=== PATIENT | female | born 1955 | race Caucasian/White ===

== ENCOUNTER 2016-11-26 08:00 | Outpatient (CLI) | payer MEDICAID | END 2016-11-26 08:01 | disposition home or self-care (01) | DX: I27.82 Chronic pulmonary embolism (principal) ==

== ENCOUNTER 2016-12-03 14:54 | Outpatient (CLI) | payer MEDICAID | END 2016-12-03 14:55 | disposition home or self-care (01) | DX: I27.82 Chronic pulmonary embolism (principal) ==

== ENCOUNTER 2016-12-11 14:15 | Outpatient (CLI) | payer MEDICAID | END 2016-12-11 14:16 | disposition home or self-care (01) | DX: I27.82 Chronic pulmonary embolism (principal) ==

== ENCOUNTER 2016-12-11 14:27 | Outpatient (CLI) | payer MEDICAID | END 2016-12-11 14:28 | disposition home or self-care (01) | DX: J18.9 Pneumonia, unspecified organism (principal); J98.4 Other disorders of lung; I27.82 Chronic pulmonary embolism ==

== ENCOUNTER 2016-12-19 15:01 | Outpatient (CLI) | payer MEDICAID | END 2016-12-19 15:02 | disposition home or self-care (01) | DX: I27.82 Chronic pulmonary embolism (principal) ==

== ENCOUNTER 2016-12-26 08:00 | Outpatient (CLI) | payer MEDICAID | END 2016-12-26 08:01 | disposition home or self-care (01) | LOC: LAB.N 08:00 | PROVIDERS: ATTEND Nurse Practitioner Family | DX: I27.82 Chronic pulmonary embolism (principal) | CPT/HCPCS: 85610 ==

== ENCOUNTER 2017-01-07 08:53 | Outpatient (CLI) | payer MEDICAID | END 2017-01-07 08:54 | disposition home or self-care (01) | DX: I27.82 Chronic pulmonary embolism (principal) ==

== ENCOUNTER 2017-01-14 14:17 | Outpatient (CLI) | payer MEDICAID | END 2017-01-14 14:18 | DX: I27.82 Chronic pulmonary embolism (principal) ==

== ENCOUNTER 2017-01-28 20:37 | Outpatient (CLI) | payer MEDICAID | END 2017-01-28 20:38 | disposition home or self-care (01) | DX: I27.82 Chronic pulmonary embolism (principal) ==

== ENCOUNTER 2017-02-04 08:00 | Outpatient (CLI) | payer MEDICAID | END 2017-02-04 08:01 | disposition home or self-care (01) | DX: I27.82 Chronic pulmonary embolism (principal) ==

== ENCOUNTER 2017-02-11 14:30 | Outpatient (CLI) | payer MEDICAID | END 2017-02-11 14:31 | disposition home or self-care (01) | DX: I27.82 Chronic pulmonary embolism (principal) ==

== ENCOUNTER 2017-02-18 14:25 | Outpatient (CLI) | payer MEDICAID | END 2017-02-18 14:26 | DX: I27.82 Chronic pulmonary embolism (principal) ==

== ENCOUNTER 2017-02-24 14:44 | Outpatient (CLI) | payer MEDICAID | END 2017-02-24 23:59 | disposition home or self-care (01) | DX: Z53.9 Procedure and treatment not carried out, unspecified reason (principal) ==

== ENCOUNTER 2017-02-24 15:00 | Outpatient (CLI) | payer MEDICAID | END 2017-02-24 15:01 | disposition home or self-care (01) | DX: M51.17 Intervertebral disc disorders with radiculopathy, lumbosacral region (principal) ==

== ENCOUNTER 2017-02-25 08:00 | Outpatient (CLI) | payer MEDICAID | END 2017-02-25 08:01 | disposition home or self-care (01) | DX: I27.82 Chronic pulmonary embolism (principal) ==

== ENCOUNTER 2017-03-04 14:44 | Outpatient (CLI) | payer MEDICAID | END 2017-03-04 23:59 | disposition home or self-care (01) | DX: I27.82 Chronic pulmonary embolism (principal) ==

== ENCOUNTER 2017-03-12 14:18 | Outpatient (CLI) | payer MEDICAID | END 2017-03-12 14:19 | DX: I27.82 Chronic pulmonary embolism (principal) ==

== ENCOUNTER 2017-03-18 14:03 | Outpatient (CLI) | payer MEDICAID | END 2017-03-18 14:04 | disposition home or self-care (01) | DX: I27.82 Chronic pulmonary embolism (principal) ==

== ENCOUNTER 2017-12-11 13:57 | Outpatient (CLI) | payer MEDICAID ==
[2017-12-11 18:47] LABS: BASOPHILS % (AUTO) 0.4 %; EOSINOPHILS # (AUTO) 0.3 10^3/uL (0.0-0.7); EOSINOPHILS % (AUTO) 4.3 %; HGB - HEMOGLOBIN 14.4 g/dL (12.0-16.0); LYMPHOCYTES % (AUTO) 15.1 %; MEAN CORPUSCULAR HEMOGLOBIN 31.5 pg (27.0-31.0); MEAN CORPUSCULAR HGB CONC 33.2 g/dL (32.0-36.0); MEAN PLATELET VOLUME 9.1 fL (7.9-10.8); MONOCYTES # (AUTO) 0.5 10^3/uL (0.0-1.0); MONOCYTES % (AUTO) 7.1 %; NEUTROPHILS # (AUTO) 4.7 10^3/uL (1.5-6.6); NEUTROPHILS % (AUTO) 73.1 %; PLT - PLATELET COUNT 189 10^3/uL (130-450); RED BLOOD COUNT 4.55 10^6/uL (4.20-5.40); RED CELL DISTRIBUTION WIDTH 14.1 % (12.0-15.0); WHITE BLOOD COUNT 6.4 x10^3/uL (4.8-10.8)
[2017-12-11 19:11] LABS: ALBUMIN 3.9 g/dL (3.2-5.5); ALBUMIN/GLOBULIN RATIO 1.6 (1.0-2.2); ALKALINE PHOSPHATASE 71 IU/L (42-121); ALT ALANINE AMINOTRANSFERASE 17 IU/L (10-60); AST ASPARTATE AMINOTRANSFERASE 19 IU/L (10-42); BILIRUBIN,TOTAL 0.9 mg/dL (0.2-1.0); BUN - BLOOD UREA NITROGEN 14 mg/dL (6-20); CALCIUM 8.7 mg/dL (8.5-10.3); CARBON DIOXIDE - CO2 26 mmol/L (21-32); CHLORIDE 105 mmol/L (101-111); CHOL/HDL RATIO 3.4 (<4.4); CHOLESTEROL 171 mg/dL; CREATININE 0.6 mg/dL (0.4-1.0); GFR - MDRD 102 (>89); GLUCOSE 122 mg/dL (70-100); HDL CHOLESTEROL 51 mg/dL; LDL CHOLESTEROL,CALCULATED 94 mg/dL; LDL/HDL RATIO 1.8 (<4.4); SODIUM 138 mmol/L (135-145); TOTAL PROTEIN 6.3 g/dL (6.7-8.2); VLDL CHOLESTEROL 26 mg/dL
== END 2017-12-11 13:58 | disposition home or self-care (01) ==
LOC: LAB.N 13:57
PROVIDERS: ATTEND Nurse Practitioner Family
DX: I10 Essential (primary) hypertension (principal); E78.5 Hyperlipidemia, unspecified
CPT/HCPCS: 36415; 80053; 80061; 83721; 84443; 85025

== ENCOUNTER 2017-12-15 14:21 | Outpatient (CLI) | payer MEDICAID ==
--- NOTE | 2017-12-16 21:14 | Mammography Report ---
DATE OF SERVICE: 12/15/2017 DIGITAL SCREENING MAMMOGRAM: 12/15/2017 CLINICAL INDICATION: A 62-year-old for baseline. TECHNIQUE: Routine CC and MLO projections were obtained of the breasts. The breasts demonstrate scattered fibroglandular densities bilaterally. Punctate, typically benign calcifications are present. No suspicious masses, clustered microcalcifications, or regions of architectural distortion are identified. IMPRESSION: Benign findings. RECOMMENDATIONS: Routine annual screening unless otherwise clinically indicated. BIRADS category 2 benign findings. STANDARD QUALIFYING STATEMENTS 1. This examination was reviewed with the aid of Computed-Aided Detection (CAD). 2. A negative or benign imaging report should not delay biopsy if clinically suspicious findings are present. Consider surgical consultation if warranted. More than 5% of cancers are not identified by imaging. 3. Dense breasts may obscure an underlying neoplasm. TD: 12/16/2017 22:13
== END 2017-12-15 14:22 | disposition home or self-care (01) ==
LOC: DI 14:21
PROVIDERS: ATTEND Nurse Practitioner Family
DX: Z12.31 Encounter for screening mammogram for malignant neoplasm of breast (principal)
CPT/HCPCS: 77067

== ENCOUNTER 2018-06-26 14:18 | Emergency (ER) | payer MEDICAID, OTHER ==
[2018-06-26] MEDS ORDERED: TETANUS/DIPHTHERIA/PERTUSSIS 0.5 ML SYRINGE IM ONE (15:01)
--- NOTE | 2018-06-26 15:16 | ED Physician Documentation ---
PD HPI UPPER EXT INJURY - Stated complaint Stated Complaint: RT PINKY FIN LAC - Chief complaint Chief Complaint: Laceration - History obtained from History obtained from: Patient - History of Present Illness Location: Right, Finger (little) Type of injury: Laceration Where injury occurred: Work Timing - onset: Today (Just prior to arrival.) Contributing factors: Work related - Additonal information Additional information: The patient is a 62-year-old female who cut her right little finger on a drip box tender while at work just prior to arrival. She is right-hand dominant. Last tetanus booster is unknown. Her medications include Pradaxa for prior pulmonary embolus. 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 HEENT: Tonsil/Adenoidectomy - Present Medications Home Medications: Ambulatory Orders Medication Instructions Recorded Confirmed Albuterol 2.5 mg INH Q4H PRN #30 neb 12/11/13 08/27/16 Amlodipine Besylate 10 mg PO DAILY 12/11/13 08/27/16 traMADol [Ultram] 100 mg PO BID 01/02/14 08/27/16 Spironolactone 75 mg PO DAILY 04/03/15 08/27/16 Ipratropium/Albuterol [Duoneb] 3 ml INH Q6H PRN 05/08/16 08/27/16 Albuterol Sulf [Ventolin Hfa 2 puffs INH Q4HR PRN 08/27/16 08/27/16 Inhaler] Fluticasone [Flonase] 1 - 2 sprays BRYAN DAILY 08/27/16 08/27/16 Fluticasone/Salmeterol [Advair Hfa 2 puffs INH BID 08/27/16 08/27/16 230-21 Mcg Inhaler] - Allergies Allergies/Adverse Reactions: Allergies Allergy/AdvReac Type Severity Reaction Status Date / Time atenolol Allergy Respiratory Verified 06/26/18 14:33 doxycycline Allergy Rash Verified 06/26/18 14:33 hydrochlorothiazide Allergy Rash Verified 06/26/18 14:33 metoprolol Allergy Unknown Verified 06/26/18 14:33 lisinopril AdvReac cough Verified 06/26/18 14:33 - Social History Does the pt smoke?: No Smoking Status: Former smoker (Quit 4 months ago.) Does the pt drink ETOH?: Yes Does the pt have substance abuse?: No - Immunizations Immunizations are current?: Yes PD ED PE NORMAL - Vitals Vital signs reviewed: Yes (Mild systolic hypertension initially.) - General General: Alert and oriented X 3, Well developed/nourished - HEENT HEENT: Atraumatic - Respiratory Respiratory: No respiratory distress - Derm Derm: No rash - Extremities Extremities: Other (There is a 1 cm laceration on the volar aspect of the right little finger at the level of the DIP joint. She has full flexion and extension of the DIP, PIP, and MCP joints against resistance. Distal neurovascular is intact.) - Neuro Neuro: Alert and oriented X 3, No motor deficit, No sensory deficit Results - Vitals Vitals: Oxygen O2 Source Room air Procedures - Laceration (location) right little finger Length in cm: 1 Wound type: Linear, Into subcut fat Neurovascular status: Sensory intact, Motor intact, Vascular intact Anesthesia: Lidocaine 1% with epi Wound Preparation: Hibiclens, Irrigated copiously NS, Wound explored, To the base. No: FB identified Skin layer closure: Nylon, Interrupted, Size #-0 - enter number (5), Sutures - enter # (3) Other: Patient tolerated well, No complications, Neurovascular intact, Dressing applied, Tetanus booster given Complexity: Simple PD MEDICAL DECISION MAKING - ED course Complexity details: considered differential, d/w patient, d/w family, other (An L&I form was completed.) ED course: The patient's presentation is significant for a laceration to the right little finger. There is no clinical evidence of tendon, nerve, or digital artery involvement. There is no evidence of foreign body. Treatment in the emergency department included administration of tetanus booster. The wound was repaired after local anesthetic and thorough cleaning of the wound. Antibiotic ointment and gauze dressing was applied. I discussed with her and her mother the expected course of injury, appropriate wound care and timing for suture removal , as well as potentially worrisome signs or symptoms that should prompt reevaluation in the emergency department. An L&I form was completed. - Sepsis Event Vital Signs: Oxygen O2 Source Room air Departure - Departure Disposition: 01 Home, Self Care Clinical Impression: Finger laceration Qualifiers: Encounter type: initial encounter Finger: little finger Damage to nail status: without damage Foreign body presence: without foreign body Laterality: right Qualified Code(s): S61.216A - Laceration without foreign body of right little finger without damage to nail, initial encounter Condition: Stable Instructions: ED Laceration Hand Follow-Up: Federica Ortiz ARNP [Credentialed Staff Provider] - Comments: Keep the wound clean, and apply antibiotic ointment daily. Follow-up for suture removal in about 10 days. Return to the emergency department if you develop any sign of infection, or otherwise worsening symptoms. Discharge Date/Time: 06/26/18 15:32
[2018-06-26 15:23] VITALS: BP 145/86
== END 2018-06-26 15:32 | disposition home or self-care (01) ==
LOC: ED 14:18
DX: S61.216A Laceration without foreign body of right little finger without damage to nail, initial encounter (principal); W26.0XXA Contact with knife, initial encounter; Y99.0 Civilian activity done for income or pay; Z23 Encounter for immunization; I10 Essential (primary) hypertension; Z87.891 Personal history of nicotine dependence
CPT/HCPCS: 1040M; 12001; 90471; 90715; 99282; 99283

== ENCOUNTER 2018-07-08 13:01 | Emergency (ER) | payer OTHER, MEDICAID ==
[2018-07-08 13:20] VITALS: BP 154/70
--- NOTE | 2018-07-08 14:15 | ED Physician Documentation ---
PD HPI WOUND RECHECK - Stated complaint Stated Complaint: REMOVE STITCHES - Chief complaint Chief Complaint: General - Histroy obtained from History obtained from: Patient - History of Present Illness Location: Right Upper Extremity Timing - onset: How many days ago (12) Associated symptoms: No: Fever, Redness, Swelling, Drainage, Pain Similar symptoms before: Diagnosis (laceration) Recently seen: Emergency Dept (12 days ago) - Additional information Additional information: 62 y/o female returns with no complaints for suture removal. She has been back at work since this happened and she has healed well. 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 HEENT: Tonsil/Adenoidectomy - Present Medications Home Medications: Ambulatory Orders Medication Instructions Recorded Confirmed Albuterol 2.5 mg INH Q4H PRN #30 neb 12/11/13 08/27/16 Amlodipine Besylate 10 mg PO DAILY 12/11/13 08/27/16 traMADol [Ultram] 100 mg PO BID 01/02/14 08/27/16 Spironolactone 75 mg PO DAILY 04/03/15 08/27/16 Ipratropium/Albuterol [Duoneb] 3 ml INH Q6H PRN 05/08/16 08/27/16 Albuterol Sulf [Ventolin Hfa 2 puffs INH Q4HR PRN 08/27/16 08/27/16 Inhaler] Fluticasone [Flonase] 1 - 2 sprays BRYAN DAILY 08/27/16 08/27/16 Fluticasone/Salmeterol [Advair Hfa 2 puffs INH BID 08/27/16 08/27/16 230-21 Mcg Inhaler] - Allergies Allergies/Adverse Reactions: Allergies Allergy/AdvReac Type Severity Reaction Status Date / Time atenolol Allergy Respiratory Verified 07/08/18 13:20 doxycycline Allergy Rash Verified 07/08/18 13:20 hydrochlorothiazide Allergy Rash Verified 07/08/18 13:20 metoprolol Allergy Unknown Verified 07/08/18 13:20 lisinopril AdvReac cough Verified 07/08/18 13:20 - Social History Does the pt smoke?: No Smoking Status: Former smoker (Quit 4 months ago.) Does the pt drink ETOH?: Yes Does the pt have substance abuse?: No - Immunizations Immunizations are current?: Yes PD ED PE NORMAL - Vitals Vital signs reviewed: Yes (hypertensive) - General General: Alert and oriented X 3, No acute distress, Well developed/nourished - HEENT HEENT: Atraumatic, PERRL - Respiratory Respiratory: No respiratory distress - Extremities Extremities: No deformity, No edema, Other (healing wound) - Neuro Neuro: No motor deficit, No sensory deficit Eye Opening: Spontaneous Motor: Obeys Commands Verbal: Oriented GCS Score: 15 - Psych Psych: Normal mood, Normal affect Results - Vitals Vitals: Vital Signs - 24 hr 07/08/18 13:18 Temperature 36.4 C L Heart Rate 69 Respiratory 20 Rate Blood Pressure 154/70 H O2 Saturation 96 Oxygen O2 Source Room air PD MEDICAL DECISION MAKING - ED course Complexity details: considered differential, d/w patient ED course: healing wound no problems sutures removed by RN. - Sepsis Event Vital Signs: Vital Signs - 24 hr 07/08/18 13:18 Temperature 36.4 C L Heart Rate 69 Respiratory 20 Rate Blood Pressure 154/70 H O2 Saturation 96 Oxygen O2 Source Room air Departure - Departure Disposition: 01 Home, Self Care Clinical Impression: Healing wound Condition: Stable Instructions: ED Wound Care Discharge Date/Time: 07/08/18 14:14
== END 2018-07-08 14:14 | disposition home or self-care (01) ==
LOC: ED 13:01
DX: S61.216D Laceration without foreign body of right little finger without damage to nail, subsequent encounter (principal); X58.XXXD Exposure to other specified factors, subsequent encounter; I10 Essential (primary) hypertension; Z87.891 Personal history of nicotine dependence
CPT/HCPCS: 99282

== ENCOUNTER 2018-12-01 08:00 | Outpatient (CLI) | payer MEDICAID ==
[2018-12-01 11:14] LABS: MUDS CUTOFF CONCENTRATIONS CUTOFF CONC BELOW:
[2018-12-01 11:41] LABS: AMPHETAMINE SCREEN,URINE NEGATIVE (NEGATIVE); BENZODIAZEPINES SCREEN, URINE NEGATIVE (NEGATIVE); COCAINE SCREEN URINE NEGATIVE (NEGATIVE); METHADONE SCREEN, URINE NEGATIVE (NEGATIVE); METHAMPHETAMINES SCREEN, URINE NEGATIVE (NEGATIVE); OPIATE SCREEN, URINE NEGATIVE (NEGATIVE); OXYCODONE SCREEN, URINE NEGATIVE (NEGATIVE); PROPOXYPHENE SCREEN, URINE NEGATIVE (NEGATIVE); TRICYCLIC ANTIDEPRESSANT,URINE NEGATIVE (NEGATIVE)
== END 2018-12-01 23:59 | disposition home or self-care (01) ==
LOC: LAB.R 08:00
PROVIDERS: ATTEND Nurse Practitioner Family
DX: Z79.891 Long term (current) use of opiate analgesic (principal)
CPT/HCPCS: 80306

== ENCOUNTER 2019-03-17 08:00 | Outpatient (CLI) | payer MEDICAID ==
[2019-03-17 17:27] LABS: MUDS CUTOFF CONCENTRATIONS CUTOFF CONC BELOW:
[2019-03-17 17:49] LABS: AMPHETAMINE SCREEN,URINE NEGATIVE (NEGATIVE); BENZODIAZEPINES SCREEN, URINE NEGATIVE (NEGATIVE); COCAINE SCREEN URINE NEGATIVE (NEGATIVE); METHADONE SCREEN, URINE NEGATIVE (NEGATIVE); METHAMPHETAMINES SCREEN, URINE NEGATIVE (NEGATIVE); OPIATE SCREEN, URINE NEGATIVE (NEGATIVE); OXYCODONE SCREEN, URINE NEGATIVE (NEGATIVE); PROPOXYPHENE SCREEN, URINE NEGATIVE (NEGATIVE); TRICYCLIC ANTIDEPRESSANT,URINE NEGATIVE (NEGATIVE)
== END 2019-03-17 23:59 | disposition home or self-care (01) ==
LOC: LAB.R 08:00
PROVIDERS: ATTEND Nurse Practitioner Family
DX: Z79.891 Long term (current) use of opiate analgesic (principal)
CPT/HCPCS: 80306

== ENCOUNTER 2020-08-24 11:29 | Outpatient (CLI) | payer MEDICAID | END 2020-08-24 11:30 | disposition EMS.NT | LOC: EMS 11:29 | PROVIDERS: ATTEND Surgery | DX: R06.00 Dyspnea, unspecified (principal); R05 Cough ==

== ENCOUNTER 2024-02-14 08:12 | Outpatient (CLI) | payer BC, MEDICARE | END 2024-02-14 23:59 | disposition short-term general hospital (02) | LOC: EMS 08:12 | DX: R06.2 Wheezing (principal); R09.89 Other specified symptoms and signs involving the circulatory and respiratory systems; R06.00 Dyspnea, unspecified | CPT/HCPCS: A0425; A0427 ==

== ENCOUNTER 2024-08-07 14:13 | Emergency (ER) | payer MEDICARE ==
--- NOTE | 2024-08-07 14:40 | ED Physician Documentation ---
History of Present Illness - Stated complaint Stated Complaint: HIGH BP READING,VISION SPOTTY/THROBBING - Chief complaint Chief Complaint: Neuro - Additonal information Additional information: 68-year-old female with history of hypertension, COPD, asthma, history of pulmonary embolism anticoagulated on Pradaxa, high cholesterol presents emergency department for ongoing hypertension. Patient says that she saw her primary care provider about a month ago and systolic blood pressure was over the 200s. She takes 5 mg amlodipine daily and 100 mg of losartan daily and used to take spironolactone but was recently taken off of this medication for high potassium. She says that she has just been intermittently feeling nauseous, left arm pain right neck pain woke up today with severe tailbone pain despite no trauma or falls and feels a constant whooshing noise to her ears and severe head pressure. No recent fevers or chills that she is aware of.Patient also reports that she has been having new vision changes and feels like her vision is very blurry. 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 HEENT: Tonsil/Adenoidectomy - Present Medications Home Medications: Ambulatory Orders Medication Instructions Recorded Confirmed Amlodipine Besylate 5 mg PO DAILY 12/11/13 08/27/16 traMADol [Ultram] 100 mg PO BID 01/02/14 08/27/16 Albuterol Sulf [Ventolin Hfa 2 puffs INH Q4HR PRN 08/27/16 08/27/16 Inhaler] Fluticasone Propion/Salmeterol 2 puffs INH BID 08/27/16 08/27/16 [Advair Hfa 230-21 Mcg Inhaler] Dabigatran Etexilate Mesylate 150 mg PO BID 08/07/24 08/07/24 [Pradaxa] Losartan Potassium 100 mg PO DAILY 08/07/24 08/07/24 - Allergies Allergies/Adverse Reactions: Allergies Allergy/AdvReac Type Severity Reaction Status Date / Time atenolol Allergy Respiratory Verified 08/07/24 14:32 doxycycline Allergy Rash Verified 09/21/24 14:32 hydrochlorothiazide Allergy Rash Verified 08/07/24 14:32 metoprolol Allergy Unknown Verified 08/07/24 14:32 lisinopril AdvReac cough Verified 08/07/24 14:32 - Social History Does the pt smoke?: No Smoking Status: Never smoker Does the pt drink ETOH?: Yes Does the pt have substance abuse?: No - Immunizations Immunizations are current?: Yes PD ED PE NORMAL - Vitals Vital signs reviewed: Yes - General General: Alert and oriented X 3, No acute distress, Well developed/nourished - HEENT HEENT: Atraumatic, PERRL, EOMI - Neck Neck: Supple, no meningeal sign, No bony TTP - Cardiac Cardiac: RRR, No murmur, No gallop - Respiratory Respiratory: No respiratory distress, Clear bilaterally - Abdomen Abdomen: Normal bowel sounds, Non tender, Non distended, No organomegaly - Back Back: No CVA TTP - Derm Derm: Normal color, Warm and dry, No rash - Extremities Extremities: No edema, No calf tenderness / cord - Neuro Neuro: Alert and oriented X 3, beam dyer 2-12 intact, No motor deficit, No sensory deficit, Normal speech Eye Opening: Spontaneous Motor: Obeys Commands Verbal: Oriented GCS Score: 15 Results - Vitals Vitals: Vital Signs - 24 hr 08/07/24 08/07/24 08/07/24 14:28 15:36 16:06 Temperature 37 C Heart Rate 78 78 79 Respiratory 16 19 20 Rate Blood Pressure 209/89 H 174/85 H 162/68 H O2 Saturation 98 95 97 08/07/24 16:40 Temperature Heart Rate 72 Respiratory 20 Rate Blood Pressure 173/81 H O2 Saturation 99 Oxygen O2 Source Room air - EKG (time done) 1446 EKG releavant findings:: EKG personally interpreted by author of this note. Relevant findings are: Rate: Rate (enter#) (75) Rhythm: NSR [place]: Normal Intervals: Normal RI QRS: Normal Ischemia: Normal ST segments Other comments: Other comments - Labs Labs: Laboratory Tests 08/07/24 08/07/24 08/07/24 15:01 15:01 15:01 WBC 4.8 RBC 3.98 L Hgb 12.6 Hct 39.1 MCV 98.2 MCH 31.7 H MCHC 32.2 RDW 13.8 Plt Count 196 MPV 9.7 Neut # (Auto) 3.7 Lymph # (Auto) 0.6 L [place] # (Auto) 0.4 Eos # (Auto) 0.1 Baso # (Auto) 0.0 Absolute Nucleated RBC 0.00 Nucleated RBC % 0.0 PT 14.5 H INR 1.3 H Sodium 140 Potassium 4.0 Chloride 106 Carbon Dioxide 25 Anion Gap 9.0 BUN 14 Creatinine 0.6 Estimated GFR (MDRD) 100 Glucose 84 Calcium 9.4 Total Bilirubin 0.8 AST 27 ALT 20 Alkaline Phosphatase 67 Troponin I High Sens 7.1 B-Natriuretic Peptide Total Protein 6.5 Albumin 4.2 Globulin 2.3 Albumin/Globulin Ratio 1.8 Lipase 19 Nasal Adenovirus (PCR) Nasal B. parapertussis DNA (PCR) Nasal Coronavir 229E PCR Nasal Coronavir HKU1 PCR Nasal Coronavir NL63 PCR Nasal Coronavir OC43 PCR Nasal Enterovir/Rhinovir PCR Nasal Influenza B PCR Nasal Influenza A PCR Nasal Parainfluen 1 PCR Nasal Parainfluen 2 PCR Nasal Parainfluen 3 PCR Nasal Parainfluen 4 PCR Nasal RSV (PCR) Nasal B.pertussis DNA PCR Nasal C.pneumoniae (PCR) Hub[place] Human Metapneumo PCR Nasal M.pneumoniae (PCR) Nasal SARS-CoV-2 (PCR) 08/07/24 08/07/24 15:01 16:55 WBC RBC Hgb Hct MCV MCH MCHC RDW Plt Count MPV Neut # (Auto) Lymph # (Auto) [place] # (Auto) Eos # (Auto) Baso # (Auto) Absolute Nucleated RBC Nucleated RBC % PT INR Sodium Potassium Chloride Carbon Dioxide Anion Gap BUN Creatinine Estimated GFR (MDRD) Glucose Calcium Total Bilirubin AST ALT Alkaline Phosphatase Troponin I High Sens B-Natriuretic Peptide 58 Total Protein Albumin Globulin Albumin/Globulin Ratio Lipase Nasal Adenovirus (PCR) NOT DETECTED Nasal B. parapertussis DNA (PCR) NOT DETECTED Nasal Coronavir 229E PCR NOT DETECTED Nasal Coronavir HKU1 PCR NOT DETECTED Nasal Coronavir NL63 PCR NOT DETECTED Nasal Coronavir OC43 PCR NOT DETECTED Nasal Enterovir/Rhinovir PCR NOT DETECTED Nasal Influenza B PCR NOT DETECTED Nasal Influenza A PCR NOT DETECTED Nasal Parainfluen 1 PCR NOT DETECTED Nasal Parainfluen 2 PCR NOT DETECTED Nasal Parainfluen 3 PCR NOT DETECTED Nasal Parainfluen 4 PCR NOT DETECTED Nasal RSV (PCR) NOT DETECTED Nasal B.pertussis DNA PCR NOT DETECTED Nasal C.pneumoniae (PCR) NOT DETECTED Hubert Human Metapneumo PCR NOT DETECTED Nasal M.pneumoniae (PCR) NOT DETECTED Nasal SARS-CoV-2 (PCR) NOT DETECTED - Rads (name of study) Head CT without Relevant Findings:: Final report received, EMP independent interpretation of test (No acute intracranial pathology or findings), Other Angio head and neck Relevant Findings:: Final report received, EMP independent interpretation of test, Other (No significant intracranial arterial abnormality visualizedShe does have multiple prominent cervical lymph nodes without zaynab lymphadenopathy nonspecific finding.) Chest x-ray Relevant Findings:: Final report received, EMP independent interpretation of test, Other (No acute cardiopulmonary process) PD Medical Decision Making - ED course ED course: 68-year-old female presents emerged part for concerns of ongoing hypertension with tailbone pain, chest pain, whooshing sound in her ears. Since she has been here her blood pressure has actually improved significantly come down to 160 systolically. Labs are complete for further evaluation she has no anemia normal CMP normal kidney function. Respiratory panel is found to be negative troponin is within normal limits. The symptoms have been ongoing now for the last 3 to 4 weeks. I completed a chest x-ray for further evaluation and no acute cardiopulmonary abnormalities are visualized. Angio CT was also complete of the head and neck and again no arterial head or neck abnormalities were visualized. And a head CT was also complete for further evaluation and patient had no acute intracranial pathology. Patient says that she does have a very poor diet and drinks Mountain Dew every day which could be contributing to her hypertension. She has a follow-up appoint with cardiology coming up that her primary care provider referred her to I do not believe that she requires any hospitalization for the symptoms heart score is 3 points making her low risk for MACE and patient has close contact with her primary care provider. I am not going to make any adjustments to her hypertension medications as patient was stressed the importance of following up with her primary care provider for further evaluation and management of this. She is given very strict ER return precautions and told to return to the emergency department if she feels any worsening symptoms in any way shape or form. At this point in time patient is safe for discharge all questions answered. Departure - Departure Disposition: 01 Home, Self Care Clinical Impression: High blood pressure Qualifiers: Hypertension type: unspecified Qualified Code(s): I10 - Essential (primary) hypertension Tinnitus Qualifiers: Laterality: bilateral Qualified Code(s): H93.13 - Tinnitus, bilateral Instructions: DASH Plan Eat Heart Healthy Food, Metabolic Syndrome Lowering Your Blood Pressure Comments: Thank you for trusting us with your care. We have completed a head CT, CT angio head and neck, chest x-ray as well as labs and an EKG and I am not seeing any acute abnormalities or findings at this point in time that require further emerg ent workup. As we discussed it is very important that you are adjusting your diet and lifestyle with your high blood pressure such as eating a healthy diet, cutting out alcohol and caffeine, avoiding overly processed foods, and increasing your daily activity and adding exercise. Please follow with your primary care provider about today's ER visit for further evaluation of your blood pressure and medication adjustment. Please come back to the ER if you are having any worsening symptoms, chest pain, shortness of breath, or any other concerning emergent symptoms. Forms: PCP List Discharge Date/Time: 08/07/24 17:00
[2024-08-07 15:06] LABS: BASOPHILS % (AUTO) 0.4 %; EOSINOPHILS # (AUTO) 0.1 10^3/uL (0.0-0.7); EOSINOPHILS % (AUTO) 2.9 %; HCT - HEMATOCRIT 39.1 % (37.0-47.0); HGB - HEMOGLOBIN 12.6 g/dL (12.0-16.0); LYMPHOCYTES # (AUTO) 0.6 10^3/uL (1.5-3.5); LYMPHOCYTES % (AUTO) 11.9 %; MEAN CORPUSCULAR HEMOGLOBIN 31.7 pg (27.0-31.0); MEAN CORPUSCULAR HGB CONC 32.2 g/dL (32.0-36.0); MEAN CORPUSCULAR VOLUME 98.2 fL (81.0-99.0); MEAN PLATELET VOLUME 9.7 fL (7.9-10.8); MONOCYTES # (AUTO) 0.4 10^3/uL (0.0-1.0); MONOCYTES % (AUTO) 8.1 %; NEUTROPHILS # (AUTO) 3.7 10^3/uL (1.5-6.6); NEUTROPHILS % (AUTO) 76.5 %; PLT - PLATELET COUNT 196 10^3/uL (130-450); RED BLOOD COUNT 3.98 10^6/uL (4.20-5.40); RED CELL DISTRIBUTION WIDTH 13.8 % (12.0-15.0); WHITE BLOOD COUNT 4.8 x10^3/uL (4.8-10.8)
[2024-08-07 15:24] LABS: ALBUMIN 4.2 g/dL (3.2-5.5); ALBUMIN/GLOBULIN RATIO 1.8 (1.0-2.2); BILIRUBIN,TOTAL 0.8 mg/dL (0.2-1.0); CALCIUM 9.4 mg/dL (8.5-10.3); CREATININE 0.6 mg/dL (0.6-1.3); TOTAL PROTEIN 6.5 g/dL (6.4-8.9)
[2024-08-07] MEDS ORDERED: iohexoL-300 100 ML VIAL ONE (15:32)
[2024-08-07 15:34] LABS: INR 1.3 (0.8-1.2); PT - PROTHROMBIN TIME 14.5 secs (9.9-12.6)
[2024-08-07 16:07] LABS: TROPONIN I HIGH SENSITIVITY 7.1 ng/L (2.3-14.8)
--- NOTE | 2024-08-07 16:14 | CT Report ---
PROCEDURE: Head WO INDICATIONS: severe head pain TECHNIQUE: Noncontrast 4.5 mm thick angled axial sections acquired from the foramen magnum to the vertex. For r adiation dose reduction, the following was used: automated exposure control, adjustment of mA and/or kV according to patient size. COMPARISON: None. FINDINGS: Image quality: Excellent. CSF spaces: Basal cisterns are patent. No extra-axial fluid collections. Ventricles are normal in size and shape. Brain: No midline shift. No intracranial masses or hemorrhage. Malave-white matter interface is norm al. Skull and face: Calvarium and visualized facial bones are intact, without suspicious lesions. Sinuses: Visualized sinuses and mastoids are clear. IMPRESSION: No acute intracranial pathology. Reviewed by: Ck Farley MD on 08/07/2024 3:12 PM AKRADHA Approved by: Ck Farley MD on 08/07/2024 3:12 PM AKRADHA Station ID: [id number]
--- NOTE | 2024-08-07 16:19 | CT Report ---
PROCEDURE: Angio Head/Neck INDICATIONS: severe head/neck pain TECHNIQUE: After the administration of intravenous contrast, 1 mm thick sections acquired from the aortic arch t hrough the [place] of [place]. 3-dimensional fitelkg-bskwlseot-vtahhtwnhp (MIP) and/or volume renderin g reformats were acquired of the central intracranial vasculature and neck separately. For radiation dose reduction, the following was used: automated exposure control, adjustment of mA and/or kV acco rding to patient size. CONTRAST: omni, 80 COMPARISON: None. FINDINGS: Image quality: Diagnostic. HEAD CT: CSF Spaces: Basal cisterns are patent. No extra-axial fluid collections. Ventricles are normal in size and shape. Brain: No significant abnormality is seen for scanning technique. Skull and face: Calvarium and visualized facial bones appear intact, without suspicious lesions. Sinuses: Visualized sinuses and mastoids are clear. HEAD CT ANGIOGRAPHY: Anterior circulation: Intracranial internal carotid arteries are normal in size and flow. The flow within the paired anterior cerebral arteries is normal and symmetric. The flow within the middle cer ebral arteries is normal and symmetric. The anterior communicating artery is seen. No aneurysms are seen. Posterior circulation: Visualized portions of the vertebral arteries demonstrate normal caliber, and join to form a normal appearing basilar artery. Flow within the posterior cerebral arteries is norm al and symmetric. No aneurysms are seen. NECK CT ANGIOGRAPHY: Carotid system: The great vessels demonstrate a conventional anatomy as they arise from the aortic a rch. The origins of the common carotid arteries appear patent. The common carotid arteries demonstr ate normal caliber and courses. The bifurcation regions are both widely patent. The internal caroti d arteries demonstrate normal calibers and courses. Posterior circulation: The origins of the vertebral arteries both appear widely patent. The more reina perior extracranial portions of both vertebral arteries also demonstrate normal courses and calibers. They join to form a normal appearing basilar artery. Soft tissues: Prominent lymph nodes throughout the cervical neck without zaynab lymphadenopathy. Bones: No suspicious bony lesions. Reversal normal cervical lordosis.. IMPRESSION: No significant intracranial arterial abnormality is seen. No significant abnormality is seen within the arteries of the neck. Multiple prominent cervical lymph nodes without zaynab lymphadenopathy, a nonspecific finding. Reviewed by: Ck Farley MD on 08/07/2024 3:18 PM FADI Approved by: Ck Farley MD on 08/07/2024 3:18 PM AKDT Station ID: [id number]
--- NOTE | 2024-08-07 16:20 | XRAY Report ---
PROCEDURE: Chest 1V INDICATIONS: Chest Pain TECHNIQUE: One view of the chest was acquired. COMPARISON: None. FINDINGS: Surgical changes and devices: None. Lungs and pleura: No pleural effusions or pneumothorax. Lungs are clear. Mediastinum: Mediastinal contours appear normal. Heart size is normal. Bones and chest wall: No suspicious bony lesions. Overlying soft tissues appear unremarkable. IMPRESSION: No acute cardiopulmonary process. Reviewed by: Ck Farley MD on 08/07/2024 3:19 PM AKDT Approved by: Ck Farley MD on 08/07/2024 3:19 PM AKDT Station ID: [id number]
[2024-08-07 16:59] VITALS: BP 173/81; O2SAT 99
[2024-08-07 17:59] LABS: CORONAVIRUS 229E-RESP PCR NOT DETECTED; CORONAVIRUS HKU1-RESP PCR NOT DETECTED; CORONAVIRUS NL63-RESP PCR NOT DETECTED; CORONAVIRUS OC43-RESP PCR NOT DETECTED; HUMAN METAPNEUMOVIRUS NOT DETECTED; RHINOVIRUS/ENTEROVIRUS NOT DETECTED; SARS-CoV-2 -RESP PCR PANEL NOT DETECTED
[2024-08-07 18:00] LABS: B. PARAPERTUSSIS- RESP PCR PAN NOT DETECTED; B. PERTUSSIS- RESP PCR PANEL NOT DETECTED; C. PNEUMONIAE- RESP PCR PANEL NOT DETECTED; INFLUENZA A- RESP PCR PANEL NOT DETECTED; INFLUENZA B - RESP PCR PANEL NOT DETECTED; M. PNEUMONIAE- RESP PCR PANEL NOT DETECTED; PARAINFLUENZA VIRUS 1 NOT DETECTED; PARAINFLUENZA VIRUS 2 NOT DETECTED; PARAINFLUENZA VIRUS 3 NOT DETECTED; PARAINFLUENZA VIRUS 4 NOT DETECTED; RSV- RESP PCR PANEL NOT DETECTED
[2024-08-07] MEDS: iohexoL-300 100 ML VIAL IVP ONE (18:07)
== END 2024-08-07 17:00 | disposition home or self-care (01) ==
LOC: ED 14:13
DX: I10 Essential (primary) hypertension (principal); H91.3 Deaf nonspeaking, not elsewhere classified
CPT/HCPCS: 36415; 70450; 70496; 70498; 71045; 80053; 83690; 83880; 84484; 85025; 85610; 87633; 93005; 99283; 99284; Q9967

== ENCOUNTER 2025-10-20 08:23 | Observation (INO) ==
--- OUTSIDE RECORDS SUMMARY | 2025-10-20 08:55 | EXTERNAL MEDICAL SUMMARY RPT | Continuity of Care Document ---
Author Organization [facility] Address [address] [place] [id number] Phone Problems date description facility 2025-08-18 15:04 Unspecified abnormalities of ga it and mobility [facility] 2025-09-26 09:26 Heart failure, unspecified [facility] 2025-09-26 09:26 Chronic obstructive pulmonary disease with (acute) exacerbation [facility] 2025-09-26 09:26 Dyspnea, unspecified [facility] 2025-09-26 09:26 Localized edema [facility] 2025-09-26 10:01 Heart failure, unspecified [facility] 2025-09-26 10:01 Chronic obstructive pulmonary disease with (acute) exacerbation [facility] 2025-09-26 10:01 Dyspnea, unspecified [facility] 2025-09-26 10:01 Localized edema [facility] 2025-09-27 00:03 Heart failure, unspecified [facility] 2025-09-27 00:03 Chronic obstructive pulmonary disease with (acute) exacerbation [facility] 2025-09-27 00:03 Dyspnea, unspecified [facility] 2025-09-27 00:03 Localized edema [facility] 2025-09-27 00:05 Heart failure, unspecified [facility] 2025-09-27 00:05 Chronic obstructive pulmonary disease with (acute) exacerbation [facility] 2025-09-27 00:05 Dyspnea, unspecified [facility] 2025-09-27 00:05 Localized edema [facility] 2025-10-01 11:27 Bronchitis, not specified as ac [place] or chronic [facility] 2025-10-01 11:27 Chronic obstructive pulmonary disease with (acute) exacerbation [facility] 2025-10-01 11:27 Chest pain, unspecified [facility] 2025-10-01 11:51 Bronchitis, not specified as ac [place] or chronic [facility] 2025-10-01 11:51 Chronic obstructive pulmonary disease with (acute) exacerbation [facility] 2025-10-01 11:51 Chest pain, unspecified [facility] 2025-10-05 11:22 Bronchitis, not specified as ac [place] or chronic [facility] 2025-10-05 11:22 Chronic obstructive pulmonary disease with (acute) exacerbation [facility] 2025-10-05 11:22 Cough, unspecified [facility] 2025-10-05 11:22 Other chest pain [facility] 2025-10-05 11:22 Chest pain, unspecified [facility] 2025-10-06 09:50 Chest pain, unspecified [facility] Results/Labs test date facility value unit notes Result panel 1 [facility] 2025-09-26 12:11 [facility] < 200.0 ng/ml D-Dimer results correspond to ng/mL of d-Dimer Units (D-DU) A cutoff of <230 ng/mL has been established for the negative predictive value for deep venous thrombosis (DVT) and pulmonary embolism (PE). (FDA approved). D-Dimer assay results should be used in conjunction with a clinical pretest probability (PTP) assessment model to exclude venous thromboembolism (VTE) in patient suspected of deep venous thrombosis (DVT) and pulmonary embolism (PE). (revised 09/22/14) BILIRUBIN,TOTAL 2025-09-26 12:11 [facility] 0.5 mg/dl As of May 2023 testing method has changed, this may include reference ranges. CREATININE 2025-09-26 12:11 [facility] 1.2 mg/dl As of May 2023 testing method has changed, this may include reference ranges. ALBUMIN/GLOBULIN RATIO 2025-09-26 12:11 [facility] 1.5 (missing) (missing) ALKALINE PHOSPHATASE 2025-09-26 12:11 [facility] 114 iu/l As of May 2023 testing method has changed, this may include reference ranges. SODIUM 2025-09-26 12:11 [facility] 133 mmol/l (missing) BUN - BLOOD UREA NITROGEN 2025-09-26 12:11 [facility] 16 mg/dl As of May 2023 testing method has changed, this may include reference ranges. GLOBULIN 2025-09-26 12:11 [employer] [employer] 2.7 g/dl (missing) GLUCOSE 2025-09-26 12:11 [facility] 242 mg/dl As of May 2023 testing method has changed, this may include reference ranges. CARBON DIOXIDE - CO2 2025-09-26 12:11 [facility] 26 mmol/l As of May 2023 testing method has changed, this may include reference ranges. ALT ALANINE AMINOTRANSFERASE 2025-09-26 12:11 [facility] 36 iu/l As of May 2023 testing method has changed, this may include reference ranges. ALBUMIN 2025-09-26 12:11 [facility] 4.1 g/dl As of May 2023 testing method has changed, this may include reference ranges. POTASSIUM 2025-09-26 12:11 [facility] 4.4 mmol/l As of May 2023 testing method has changed, this may include reference ranges. GFR - MDRD 2025-09-26 12:11 [facility] 45 (missing) The IDMS-traceable MDRD Study Equation has been validated extensively in and populations between the ages of 18 and 70 with impaired kidney function (eGFR < 60 mL/min/1.73m2) and has shown good performance for patients with all common causes of kidney disease. Although this equation has not been validated for patients older than 70, an MDRD-derived eGFR may still be a useful tool for providers caring for patients older than 70. References: http://www.nkdep.ni h.gov/lab-evaluatio n/gfr/creatinine-st and ardization, last updated January 2012. AST ASPARTATE AMINOTRANSFERASE 2025-09-26 12:11 [facility] 48 iu/l As of May 2023 testing method has changed, this may include reference ranges. TOTAL PROTEIN 2025-09-26 12:11 [facility] 6.8 g/dl As of May 2023 testing method has changed, this may include reference ranges. ANION GAP 2025-09-26 12:11 [facility] 8.0 (missing) (missing) CALCIUM 2025-09-26 12:11 [facility] 9.1 mg/dl As of May 2023 testing method has changed, this may include reference ranges. CHLORIDE 2025-09-26 12:11 [facility] 99 mmol/l As of May 2023 testing method has changed, this may include reference ranges. Result panel 2 NUCLEATED RED BLOOD CELLS AUTO 2025-09-26 12:14 [facility] 0.0 /100wbc (missing) BASOPHILS # (AUTO) 2025-09-26 12:14 [facility] 0.0 10 3/ul (missing) EOSINOPHILS # (AUTO) 2025-09-26 12:14 [facility] 0.0 10 3/ul (missing) NRBC ABSOLUTE COUNT (AUTO) 2025-09-26 12:14 [facility] 0 .00 x10 3/ul (missing) MONOCYTES # (AUTO) 2025-09-26 12:14 [facility] 0.2 10 3/ul (missing) LYMPHOCYTES # (AUTO) 2025-09-26 12:14 [facility] 0.4 10 3/ul (missing) MEAN PLATELET VOLUME 2025-09-26 12:14 [facility] 10.2 fl (missing) WHITE BLOOD COUNT 2025-09-26 12:14 [facility] 10.4 x10 3/ul (missing) MEAN CORPUSCULAR VOLUME 2025-09-26 12:14 [facility] 103. 7 fl (missing) HGB - HEMOGLOBIN 2025-09-26 12:14 [facility] 12.3 g /dl (missing) RED CELL DISTRIBUTION WIDTH 2025-09-26 12:14 [facility] 13.2 % (missing) PLT - PLATELET COUNT 2025-09-26 12:14 [facility] 275 10 3/ul (missing) RED BLOOD COUNT 2025-09-26 12:14 [facility] 3.82 10 6/ul (missing) MEAN CORPUSCULAR HGB CONC 2025-09-26 12:14 [facility] 31 .1 g/dl (missing) MEAN CORPUSCULAR HEMOGLOBIN 2025-09-26 12:14 [facility] 32.2 pg (missing) HCT - HEMATOCRIT 2025-09-26 12:14 [facility] 39.6 % (missing) BNP - B-NATRIURETIC PEPTIDE 2025-09-26 12:14 [facility] 52 pg/ml (missing) NEUTROPHILS # (AUTO) 2025-09-26 12:14 [facility] 9.8 10 3/ul (missing) Result panel 3 ABNORMAL LYMPHS % (MANUAL) 2025-10-01 06:00 [facility] 0 % (missing) BASOPHILS # (MANUAL) 2025-10-01 06:00 [facility] 0.0 10 3/ul (missing) EOSINOPHILS # (MANUAL) 2025-10-01 06:00 [facility] 0.0 10 3/ul (missing) PROCALCITONIN 2025-10-01 06:00 [facility] 0.25 ng/ml PCT Concentration (ng/mL) Children >72hrs old and Adults Interpretation ======= ======== <0.5 Low risk of severe sepsis and/or septic shock >2.0 High risk of severe sepsis and/or septic shock Concentrations under 0.5 ng/mL do not exclude local infections or systemic infections in their initial stages (e.g. under six hours from onset of illness). PCT concentrations between 0.5 and 2.0 ng/mL should be interpreted with consideration of the patient's history. In this range, it is recommended to retest PCT within 6 to 24hours. BILIRUBIN,TOTAL 2025-10-01 06:00 [facility] 0.4 mg/dl As of May 2023 testing method has changed, this may include reference ranges. BAND NEUTROPHILS % (MANUAL) 2025-10-01 06:00 [facility] 1 % (missing) METAMYELOCYTES % (MANUAL) 2025-10-01 06:00 [facility] 1 % (missing) MYELOCYTES % (MANUAL) 2025-10-01 06:00 [facility] 1 % (missing) MONOCYTES # (MANUAL) 2025-10-01 06:00 [facility] 1.0 10 3/ul (missing) ALBUMIN/GLOBULIN RATIO 2025-10-01 06:00 [facility] 1.5 (sandeep ng) (missing) LYMPHOCYTES # (MANUAL) 2025-10-01 06:00 [facility] 1.5 10 3/ul (missing) CREATININE 2025-10-01 06:00 [facility] 1.5 mg/dl As of May 2023 testing method has changed, this may include reference ranges. TOTAL CELLS COUNTED 2025-10-01 06:00 [facility] 100 ([facility]) (missing) ANION GAP 2025-10-01 06:00 [facility] 11.0 (critical access hospital) (missing) HGB - HEMOGLOBIN 2025-10-01 06:00 [facility] 11.1 g/dl (missing) SODIUM 2025-10-01 06:00 [facility] 129 mmol/l (missing) RED CELL DISTRIBUTION WIDTH 2025-10-01 06:00 [facility] 13.2 % (missing) GLOBULIN 2025-10-01 06:00 [facility] 2.5 g/dl (missing) CARBON DIOXIDE - CO2 2025-10-01 06:00 [facility] 23 mmol/l As of May 2023 testing method has changed, this may include reference ranges. PLT - PLATELET COUNT 2025-10-01 06:00 [facility] 235 10 3/ul (missing) AST ASPARTATE AMINOTRANSFERASE 2025-10-01 06:00 [facility] 29 iu/l As of May 2023 testing method has changed, this may include reference ranges. RED BLOOD COUNT 2025-10-01 06:00 [facility] 3.42 10 6/ul (missing) ALBUMIN 2025-10-01 06:00 [facility] 3.8 g/dl As of May 2023 testing method has changed, this may include reference ranges. ALT ALANINE AMINOTRANSFERASE 2025-10-01 06:00 [facility] 30 iu/l As of May 2023 testing method has changed, this may include reference ranges. MEAN CORPUSCULAR HEMOGLOBIN 2025-10-01 06:00 [facility] 32.5 pg (missing) MEAN CORPUSCULAR HGB CONC 2025-10-01 06:00 [facility] 33.0 g/dl (missing) HCT - HEMATOCRIT 2025-10-01 06:00 [facility] 33.6 % (missing) BUN - BLOOD UREA NITROGEN 2025-10-01 06:00 [facility] 34 mg/dl As of May 2023 testing method has changed, this may include reference ranges. GFR - MDRD 2025-10-01 06:00 [facility] 35 (critical access hospital) The IDMS-traceable MDRD Study Equation has been validated extensively in and populations between the ages of 18 and 70 with impaired kidney function (eGFR < 60 mL/min/1.73m2) and has shown good performance for patients with all common causes of kidney disease. Although this equation has not been validated for patients older than 70, an MDRD-derived eGFR may still be a useful tool for providers caring for patients older than 70. References: http://www.nkdep.[place].gov/lab-evaluat ion/gfr/creatinine -stand ardization, last updated January 2012. TROPONIN I HIGH SENSITIVITY 2025-10-01 06:00 [facility] 4.4 ng/l A HIGH SENSITIVITY TROPONIN result of >= 14.9 ng/L for females is considered POSITIVE. A HIGH SENSITIVITY TROPONIN result of >= 19.8 ng/L for males is considered POSITIVE. A HIGH SENSITIVITY TROPONIN result of >= 17.9 ng/L for unspecified is considered POSITIVE. POTASSIUM 2025-10-01 06:00 [facility] 4.6 mmol/l As of May 2023 testing method has changed, this may include reference ranges. TOTAL PROTEIN 2025-10-01 06:00 [facility] 6.3 g/dl As of May 2023 testing method has changed, this may include reference ranges. NEUTROPHILS # (MANUAL) 2025-10-01 06:00 [facility] 6.7 10 3/ul (missing) BNP - B-NATRIURETIC PEPTIDE 2025-10-01 06:00 [facility] 72 pg/ml (missing) ALKALINE PHOSPHATASE 2025-10-01 06:00 [facility] 83 iu/l As of May 2023 testing method has changed, this may include reference ranges. CALCIUM 2025-10-01 06:00 [facility] 9.0 mg/dl As of May 2023 testing method has changed, this may include reference ranges. MEAN PLATELET VOLUME 2025-10-01 06:00 [facility] 9.4 fl (missing) WHITE BLOOD COUNT 2025-10-01 06:00 [facility] [employer] 9.4 x10 3/ul (missing) CHLORIDE 2025-10-01 06:00 [facility] 95 mmol/l As of May 2023 testing method has changed, this may include reference ranges. GLUCOSE 2025-10-01 06:00 [facility] 96 mg/dl As of May 2023 testing method has changed, this may include reference ranges. MEAN CORPUSCULAR VOLUME 2025-10-01 06:00 [employer] 98.2 fl (missing) DIFFERENTIAL COMMENT 2025-10-01 06:00 [facility] MANUAL DIFFERENTIAL (sandeep ng) (missing) PLATELET ESTIMATE, MANUAL 2025-10-01 06:00 [employer] NORMAL (130-450,000) (sandeep ng) (missing) PLATELET MORPHOLOGY 2025-10-01 06:00 [facility] NORMAL ASHLEY (sandeep ng) (missing) RBC MORPHOLOGY (MULTIPLE) 2025-10-01 06:00 [facility] [employer] NORMAL APPEARANCE (sandeep ng) (missing) WBC MORPHOLOGY (MULTIPLE) 2025-10-01 06:00 [facility] [employer] NORMAL APPEARANCE (sandeep ng) (missing) Result panel 4 SARS-CoV-2 -RESP PCR PANEL 2025-10-01 06:10 [email or web address] NOT DETECTED (missing) A negative test result for this test indicates that SARS-CoV-2 RNA was not present in the specimen above the limit of detection. Testing performed on the [employer] RP2.1 Panel, a multiplexed nucleic acid repiratory panel. Negative results do not preclude infection with SARS-CoV-2 virus and should not be the sole basis of a patient management decision. In some patients repeat testing at various time points may be necessary for virus detection. False-negative results may arise from improper sample collection, degradation of viral RNA during shipping or storage, the presence of PCR inhibitors, and/or mutation in the SARS-CoV-2 virus. INFLUENZA A- RESP PCR PANEL 2025-10-01 06:10 [facility] NOT DETECTED (missing) Influenza A including subtypes H1, H3, and H1-2009 not detected by the [employer] RP2.1 Panel, a multiplexed nucleic acid test intended for the simultaneous qualitative detection and differentiation of nucleic acids from multiple viral and bacterial respiratory organisms. B. PARAPERTUSSIS- RESP PCR KIM 2025-10-01 06:10 [facility] NOT DETECTED (missing) Negative results for this organism do not preclude infection with this organism and may require additional laboratory testing (e.g., bacterial and viral culture, immunofluorescence, and radiography) when evaluating a patient with possible respiratory tract infection. B. PERTUSSIS- RESP PCR PANEL 2025-10-01 06:10 [facility] NOT DETECTED (missing) Negative results for this organism do not preclude infection with this organism and may require additional laboratory testing (e.g., bacterial and viral culture, immunofluorescence, and radiography) when evaluating a patient with possible respiratory tract infection. C. PNEUMONIAE- RESP PCR PANEL 2025-10-01 06:10 [facility] NOT DETECTED (missing) Negative results for this organism do not preclude infection with this organism and may require additional laboratory testing (e.g., bacterial and viral culture, immunofluorescence, and radiography) when evaluating a patient with possible respiratory tract infection. M. PNEUMONIAE- RESP PCR PANEL 2025-10-01 06:10 [facility] NOT DETECTED (missing) Negative results for this organism do not preclude infection with this organism and may require additional laboratory testing (e.g., bacterial and viral culture, immunofluorescence, and radiography) when evaluating a patient with possible respiratory tract infection. CORONAVIRUS 229E-RESP PCR 2025-10-01 06:10 [facility] NOT DETECTED (missing) Negative results in the setting ofa respiratory illness may be due to infection with pathogens not detected by this test, or lower respiratory tract infection that may not be detected by nasopharyngeal specimen. CORONAVIRUS HKU1-RESP PCR 2025-10-01 06:10 [facility] NOT DETECTED (missing) Negative results in the setting ofa respiratory illness may be due to infection with pathogens not detected by this test, or lower respiratory tract infection that may not be detected by nasopharyngeal specimen. CORONAVIRUS [id number]-XTIK PCR 2025-10-01 06:10 [facility] NOT DETECTED (missing) Negative results in the setting ofa respiratory illness may be due to infection with pathogens not detected by this test, or lower respiratory tract infection that may not be detected by nasopharyngeal specimen. CORONAVIRUS BD39-ANHP PCR 2025-10-01 06:10 [facility] NOT DETECTED (missing) Negative results in the setting ofa respiratory illness may be due to infection with pathogens not detected by this test, or lower respiratory tract infection that may not be detected by nasopharyngeal specimen. HUMAN METAPNEUMOVIRUS 2025-10-01 06:10 [facility] NOT DETECTED (missing) Negative results in the setting ofa respiratory illness may be due to infection with pathogens not detected by this test, or lower respiratory tract infection that may not be detected by nasopharyngeal specimen. INFLUENZA B - RESP PCR PANEL 2025-10-01 06:10 [facility] [employer] NOT DETECTED (missing) Negative results in the setting ofa respiratory illness may be due to infection with pathogens not detected by this test, or lower respiratory tract infection that may not be detected by nasopharyngeal specimen. PARAINFLUENZA VIRUS 1 2025-10-01 06:10 [facility] [employer] NOT DETECTED (missing) Negative results in the setting ofa respiratory illness may be due to infection with pathogens not detected by this test, or lower respiratory tract infection that may not be detected by nasopharyngeal specimen. PARAINFLUENZA VIRUS 2 2025-10-01 06:10 [facility] [employer] NOT DETECTED (missing) Negative results in the setting ofa respiratory illness may be due to infection with pathogens not detected by this test, or lower respiratory tract infection that may not be detected by nasopharyngeal specimen. PARAINFLUENZA VIRUS 3 2025-10-01 06:10 [facility] [employer] NOT DETECTED (missing) Negative results in the setting ofa respiratory illness may be due to infection with pathogens not detected by this test, or lower respiratory tract infection that may not be detected by nasopharyngeal specimen. PARAINFLUENZA VIRUS 4 2025-10-01 06:10 [facility] NOT DETECTED (missing) Negative results in the setting ofa respiratory illness may be due to infection with pathogens not detected by this test, or lower respiratory tract infection that may not be detected by nasopharyngeal specimen. RHINOVIRUS/ENTEROVI DYAN 2025-10-01 06:10 [facility] NOT DETECTED (missing) Negative results in the setting ofa respiratory illness may be due to infection with pathogens not detected by this test, or lower respiratory tract infection that may not be detected by nasopharyngeal specimen. RSV- RESP PCR PANEL 2025-10-01 06:10 [facility] NOT DETECTED (missing) Negative results in the setting ofa respiratory illness may be due to infection with pathogens not detected by this test, or lower respiratory tract infection that may not be detected by nasopharyngeal specimen. ADENOVIRUS - RESP PCR PANEL 2025-10-01 06:10 [facility] NOT DETECTED (missing) Y YES Negative results in the setting ofa respiratory illness may be due to infection with pathogens not detected by this test, or lower respiratory tract infection that may not be detected by nasopharyngeal specimen. Social History date description facility
[2025-10-20 09:15] LABS: HCT - HEMATOCRIT 27.2 % (37.0-47.0); HGB - HEMOGLOBIN 8.6 g/dL (12.0-16.0); MEAN PLATELET VOLUME 9.1 fL (7.9-10.8); NRBC ABSOLUTE COUNT (AUTO) 0.00 x10^3/uL; NUCLEATED RED BLOOD CELLS AUTO 0.0 /100WBC; PLT - PLATELET COUNT 208 10^3/uL (130-450); RED CELL DISTRIBUTION WIDTH 15.4 % (12.0-15.0)
--- NOTE | 2025-10-20 09:19 | XRAY Report ---
PROCEDURE: XR Chest 1V INDICATIONS: CP TECHNIQUE: One view of the chest was acquired. COMPARISON: Chest radiograph 10/01/2025 FINDINGS: Surgical changes and devices: None. Lungs and pleura: No pleural effusions or pneumothorax. No consolidation. Mediastinum: Mediastinal contours appear normal. Heart size is normal. Bones and chest wall: No suspicious bony lesions. Overlying soft tissues appear unremarkable. IMPRESSION: No acute cardiopulmonary process. Reviewed by: Akhil Gilman MD on 10/20/2025 9:15 AM PST Approved by: Akhil Gilman MD on 10/20/2025 9:15 AM PST Station ID: [id number]
[2025-10-20 09:32] LABS: ALT ALANINE AMINOTRANSFERASE 17.0 IU/L (10-60); AST ASPARTATE AMINOTRANSFERASE 16.0 IU/L (10-42); BUN - BLOOD UREA NITROGEN 41.0 mg/dL (6-20); CARBON DIOXIDE - CO2 25.0 mmol/L (21-32); CREATININE 1.5 mg/dL (0.6-1.3); GFR - MDRD 35.0 (>89)
[2025-10-20 09:36] LABS: TROPONIN I HIGH SENSITIVITY 5.5 ng/L (2.3-14.8)
--- NOTE | 2025-10-20 09:50 | ED Physician Documentation ---
History of Present Illness Stated complaint Stated Complaint: SOB, BACK PX Chief complaint Chief Complaint: Cardiac Additonal information Additional information: Patient is a 69-year-old previous VA status post stenting x 1, COPD, and heart failure on diuretic medication. Patient has been evaluated multiple times the past month for persistent symptoms of dyspnea on exertion, chest pain and back pain. She was actually seen yesterday at outpatient clinic, who recommend she come to the ER at that time for concerns for unstable angina. However patient declined ambulance ride, and preferred to present with private vehicle this morning. She states that she has no chest pain or chest heaviness. Which she is complaining of currently over the last couple weeks is significant weakness and shortness of breath with ambulation. To the point where she states that she has to take her inhaler everywhere thinking that is because of her COPD that she is struggling. She also states that she has had multiple episodes of pain between her shoulder blades in her back, that radiates to her neck. She thinks this is most relieved with nitroglycerin which she has been using intermittently over the last couple weeks. She continues to deny any chest pressure, chest pain, palpitations. She states that she does not normally need supplemental oxygen, and is not requiring it now. Currently denies any fever, chills, headache. She denies any abdominal pain, nausea, flank pain, changes to urination or bowel movements. Review of Systems Status of ROS: See HPI Meds/Allgy Home Medications Ambulatory Orders Medication Instructions Recorded Confirmed tramadol 50 mg tablet 100 mg PO BID 01/02/1410/20 albuterol sulfate 90 mcg/actuation 2 puff inhalation Q 4HR PRN 08/27/16 10/20/25 aerosol inhaler (Ventolin HFA) Shortness Of Air/Wheezi ng losartan 100 mg tablet 100 mg PO DAILY 08/07/2403/11 atorvastatin 80 mg tablet 80 mg PO HS 12/28/24 5 labetalol 100 mg tablet 100 mg PO BID 12/28/2410/20 albuterol sulfate 2.5 mg/3 mL 2.5 mg inhalation Q4H TN N 09/26/25 10/20/25 (0.083 %) solution for nebulization shortness of breat h or wheezing apixaban 5 mg tablet (Eliquis) 5 mg PO QDAY 09/26/25 1 12/21/24 clopidogrel 75 mg tablet 75 mg PO QDAY 09/26/2510/20 empagliflozin 10 mg tablet 10 mg PO QAM 09/26/2510/20 (Jardiance) ethacrynic acid 25 mg tablet 100 mg PO BID 09/26/25 mometasone-formoterol HFA 200 2 puff inhalation BID TN N 09/26/25 10/20/25 mcg-5 mcg/actuation aerosol shortness of breath inhaler (Dulera) spironolactone 25 mg tablet 25 mg PO QAM 09/26/2503/11 Allergies Allergies Allergy/AdvReac Type Severity Reaction Status Date / Time atenolol Allergy Respiratory Verified 10/20/25 08:39 doxycycline Allergy Rash Verified 10/20/25 08:39 hydrochlorothiazide Allergy Rash Verified 10/20/25 08:39 metoprolol Allergy Unknown Verified 10/20/25 08:39 lisinopril AdvReac cough Verified 10/20/25 08:39 PFSH Active Problems All Active Problems (Updated 10/20/25 @ 16:23 by Alex Youngblood MD) Anemia (Chronic) GI bleed (Acute) Angina pectoris, unstable (Acute) History of pulmonary embolus (PE) (Acute) Bronchitis (Acute) Acute exacerbation of COPD with asthma (Acute) Cough (Acute) Chest pain (Acute) Elevated blood pressure reading (Acute) Leg edema (Acute) CHF (congestive heart failure) (Acute) Healing wound (Acute) Finger laceration (Acute) Chronic pain (Acute) Pleural effusion, left (Acute) Pulmonary embolism (Acute) Pleurisy (Acute) Nicotine addiction (Acute) HTN (hypertension) (Acute) RAD (reactive airway disease) (Acute) Bilateral pneumonia (Acute) Hypoxia (Acute) Dyspnea (Acute) Bronchitis (Acute) COPD (chronic obstructive pulmonary disease) (Acute) Surgical History Surgical History History of back surgery Social History Social History (Updated 10/20/25 @ 08:41 by Jessie Ryan RN) Smoking Status: Former smoker If you are a former smoker, when did you quit? (Date/Year): April 2016 Number of Years Smoked: 46 How many cigarettes a day do you smoke? (20 cigarettes=1 Pk): 10 Do you dip or chew tobacco?: No Patient requests smoking cessation consult: No Initiate information on smoking cessation: No Living arrangement: At home Living Condition: With family Support Person: No Home Mobility Equipment: Walker Do you feel safe in your home environment?: Yes History of physical, verbal, emotional, or financial abuse?: No ETOH Use: Beer Frequency: Daily Substance Use: denies use POLST Patient has POLST: No Exam Exam Vital Signs: Vital Signs x48h Temp Pulse Resp BP Pulse Ox 10/20/25 15:11 82 16 124/62 100 10/20/25 13:55 75 18 123/66 99 10/20/25 12:24 102 H 17 90/47 L 97 10/20/25 10:43 103 H 20 103/64 96 10/20/25 08:34 35.6 C L 60 20 124/64 96 Constitutional normal general appearance and no apparent distress Resting in examination bed in no acute distress HENMT normocephalic Eyes conjunctivae normal Neck/C-Spine supple Respiratory Mildly diminished breath sounds bilaterally, scattered crackle, scattered wheeze. Saturating at 98% on room air. Cardiovascular normal heart rate noted, regular rhythm noted, no murmur and peripheral pulses 2+ throughout Gastrointestinal abdomen soft to palpation, nontender to palpation and nontender to percussion Genitourinary no CVA tenderness Neurology rn occupational II-XII intact and GCS 15 Psychiatry mental status grossly normal and oriented x3 Skin skin color normal Results Vitals Vitals: Vital Signs - 24 hr 10/20/25 08:34 10/20/25 10:43 10/20/25 12:24 Temperature 35.6 C L Temperature Source Temporal Artery Scan Pulse Rate 60 103 H 102 H Respiratory Rate 20 20 17 Blood Pressure 124/64 103/64 90/47 L O2 Saturation 96 96 97 O2 Source Room air Room air Room air Pain Intensity 0 4 0 10/20/25 13:55 10/20/25 14:08 10/20/25 15:11 Temperature Temperature Source Pulse Rate 75 82 Respiratory Rate 18 16 Blood Pressure 123/66 124/62 O2 Saturation 99 100 O2 Source Room air Room air Pain Intensity 8 8 5 10/20/25 15:20 Temperature Temperature Source Pulse Rate Respiratory Rate Blood Pressure O2 Saturation O2 Source Pain Intensity 5 Oxygen O2 Source Room air Labs Labs: Laboratory Tests 10/20/25 09:10 WBC 5.4 RBC 2.62 L Hgb 8.6 L Hct 27.2 L MCV 103.8 H MCH 32.8 H MCHC 31.6 L RDW 15.4 H Plt Count 208 MPV 9.1 Neut # (Auto) 4.1 Lymph # (Auto) 0.4 L [place] # (Auto) 0.6 Eos # (Auto) 0.2 Baso # (Auto) 0.0 Absolute Nucleated RBC 0.00 Nucleated RBC % 0.0 Sodium 133 L Potassium 3.9 Chloride 96 L Carbon Dioxide 25 Anion Gap 12.0 BUN 41 H Creatinine 1.5 H Estimated GFR (MDRD) 35 L Glucose 92 Calcium 9.1 Total Bilirubin 0.7 AST 16 ALT 17 Alkaline Phosphatase 86 Troponin I High Sens 5.5 B-Natriuretic Peptide 43 Total Protein 6.3 L Albumin 3.7 Globulin 2.6 Albumin/Globulin Ratio 1.4 PD Medical Decision Making ED course ED course: Assessment: This is a 69-year-old female presents to the ER due to concerns for ongoing pain that she feels between her shoulder blades that radiates to her neck. She is denying chest pain or shortness of breath currently, but has had chest pain associated with this discomfort in the past, notably a couple weeks ago. She went to the urgent care clinic yesterday, who recommended she go to the ER for unstable angina. Patient presents today for this. DDx: Includes but is not limited to, unstable angina, stable angina, thoracic back pain, PE, dissection, musculoskeletal back pain, thoracic spine fracture, cervical spine injury, cervical spine muscular strain, ACS, VA, NSTEMI, etc. Workup: CT cervical spine unremarkable without evidence of displaced fracture. There is a large calcified disc protrusion at C5-C6. CT chest shows no acute pulmonary process. Stable lung nodule. There is also severe coronary artery calcification seen in the left main coronary artery. CT thoracic spine shows some stenosis at T4-T5, as well as T6-T7, no acute abnormality. Chest x-ray is unremarkable. CT abdomen shows no acute abdominal process, cholelithiasis, mild diverticulosis. CBC is unremarkable apart from a new drop of hemoglobin to 8.6, a couple weeks ago was 11.1, and 4 weeks ago was 12.3. CMP with mild sodium 133, BUN 41, creatinine at 1.5, per chart review, this patient had normal creatinines until the last 2 months. Previously 0.5-0.8 range. Troponin normal. BNP normal. EKG per my read: Sinus rhythm, regular intervals, normal axis, no malignant ST segment changes. Treatment: Fentanyl 50 mcg Discussion: This patient has presented multiple times in the last month for similar symptoms. She went to outpatient clinic where there was concern yesterday time for unstable angina. What she describes is significant dyspnea on exertion which is worsening over the last several weeks. She states that she can barely get around her house due to significant shortness of breath and weakness with minimal exertion which is new for her in the last month. She states that her albuterol inhaler has not been helping. She states that with minimal exertion she will develop back pain that radiates her neck, but also states that this also happens at random. She states that the only thing that is relieving this is nitro. She is also endorsing to me a history of persistent bright red blood per rectum as well as dark tarry stools. She endorses a month to month long history of GI bleeding. My concern is that this patient is having signs of unstable angina, though also I think he is having symptomatic anemia. With a GI bleed, and severe left main coronary artery calcifications, I am concerned that she is hypoperfusing her heart due to her severe CAD with her significant anemia. My recommendation was for this patient to be transferred somewhere that can do a GI bleed workup with endoscopy and colonoscopy, as well as potential stress test versus cath. Prior to my signout I attempted to transfer this patient to [place] who recommended that she go to either [facility] or [facility]. Patient is awaiting transfer to 1 of these facilities when patient is signed out to Dr. Clifford Matthew. Discharge Plan Discharge Patient Disposition: 02 Transfer Acute Care Hosp Condition: Stable Clinical Impression: Angina pectoris, unstable, GI bleed, Anemia Stand Alone Forms: PCP List
--- NOTE | 2025-10-20 10:33 | CT Report ---
PROCEDURE: CT Cervical Spine WO INDICATIONS: persistent neck pain TECHNIQUE: Noncontrast images acquired from the skull base to the T4 level. Sagittal and coronal reformats were then constructed. For radiation dose reduction, the following was used: automated exposure control, adjustment of mA and/or kV according to patient size. COMPARISON: None. FINDINGS: Image quality: Excellent. Bones: No fractures or dislocations. Large peripherally calcified disc protrusion, eccentric to the right, at C5-C6 results in moderate central canal stenosis and moderate to severe stenosis of the right side of the canal. There is multilevel prominent left facet arthropathy. There is multilevel bilateral foraminal narrowing. Visualized superior ribs are intact. Soft tissues: Prevertebral soft tissues are normal in thickness. No paravertebral hematomas. No apical pneumothoraxes. IMPRESSION: No acute, displaced fracture or traumatic subluxation. Chronic large peripherally calcified disc protrusion at C5-C6, other spondylitic change. Reviewed by: Quinn Johnson MD on 10/20/2025 10:30 AM PST Approved by: Quinn Johnson MD on 10/20/2025 10:30 AM PST Station ID: [id number]
--- NOTE | 2025-10-20 10:55 | CT Report ---
PROCEDURE: CT Thoracic Spine WO INDICATIONS: persistent thoracic pain TECHNIQUE: Noncontrast images acquired through the region of interest in the thoracic spine. Sagittal and coronal reformats were then constructed. For radiation dose reduction, the following was used: automated exposure control, adjustment of mA and/or kV according to patient size. COMPARISON: None. FINDINGS: Image quality: Excellent. Bones: There is normal overall bony alignment. No acute vertebral body compression fractures. No suspicious sclerotic or lytic bony lesions. There is calcification of the posterior longitudinal ligament spanning from mid to upper T4 to the top of T5 with resulting borderline canal stenosis at T4-T5. No other areas of thoracic canal stenosis. There is left bony foraminal narrowing at T6- T7 which may impinge on the left T6 nerve root in the foramen. Central spinal canal and foramina are otherwise of normal overall caliber. Soft tissues: No paravertebral masses or hematomas. Visualized posteromedial lungs appear clear. IMPRESSION: 1. No acute bony abnormality. 2. Borderline canal stenosis at T4-T5. 3. Left foraminal stenosis at T6-T7 may potentially impinge on the left T6 nerve root in the left foramen. Reviewed by: Quinn Johnson MD on 10/20/2025 10:52 AM PST Approved by: Quinn Johnson MD on 10/20/2025 10:52 AM PST Station ID: [id number]
--- NOTE | 2025-10-20 11:00 | CT Report ---
PROCEDURE: CT Chest W INDICATIONS: Persistent, unexplained SOB CONTRAST: 100ml omni 300 TECHNIQUE: After the administration of intravenous contrast, a CT scan of the chest was performed. Images were recorded and evaluated at appropriate window settings. Reformats: axial MIP of the chest, coronal and sagittal. For radiation dose reduction, the following was used: automated exposure control, adjustment of mA and/or kV according to patient size. COMPARISON: CTA chest dated 10/01/2025, CTA chest dated 12/28/2024 FINDINGS: Image quality: Diagnostic. Chest wall and lower neck: No thyroid nodule which requires sonographic follow up. No breast mass. No axillary or supraclavicular adenopathy by size. Lungs and pleura: No consolidation. No pleural effusions. No pneumothorax. And extreme left basal pulmonary nodule is relatively unchanged in size, measuring 0.7 x 1.1 cm. This is stable compared to December,. Mediastinum: Heart size is normal. No pericardial effusion. Severe coronary artery calcifications including left main coronary artery calcifications no large vessel abnormality. No mediastinal adenopathy by size criteria. Bones: No aggressive osseous abnormality. Upper Abdomen: Unremarkable. IMPRESSION: 1. No acute airspace consolidation. No acute pulmonary process. 2. Severe coronary artery calcifications including left main coronary artery calcifications. 3. Relatively stable pulmonary nodule, left lung base. Comment: Recommend 6-month CT follow-up chest to reevaluate the left basilar pulmonary nodule. Reviewed by: Quinn Johnson MD on 10/20/2025 10:57 AM PST Approved by: Quinn Johnson MD on 10/20/2025 10:57 AM PST Station ID: [id number]
--- NOTE | 2025-10-20 11:05 | CT Report ---
PROCEDURE: CT Abdomen/Pelvis W INDICATIONS: abdominal pain, GI bleed CONTRAST: 100ml omni 300 TECHNIQUE: After the administration of intravenous contrast, a CT scan of the abdomen and pelvis was performed. Images were recorded and evaluated at appropriate window settings. Reformats: coronal and sagittal. For radiation dose reduction, the following was used: automated exposure control, adjustment of mA and/or kV according to patient size. COMPARISON: CT chest from today, CTA chest dated 10/01/2025, CTA chest dated 12/28/2024. FINDINGS: Image quality: Diagnostic. Lower chest: Stable left basilar pulmonary nodule. Liver: No solid mass. Mild diffuse hepatic steatosis. Gallbladder: Gallstones. No gallbladder wall thickening. Biliary tree: No intrahepatic or extrahepatic dilation, accounting for age. Spleen: No splenomegaly. Pancreas: No pancreatic ductal dilation. Adrenals: No adrenal nodule. Kidneys and ureters: No hydronephrosis. No renal cystic lesion which requires follow up. No solid mass. Stomach, bowel and peritoneum: No gastric or small bowel dilation. No abnormal wall thickening. No pathologic free fluid. Mild diverticulosis. Lymph nodes: No central or retroperitoneal adenopathy. Vessels: No infrarenal aortic aneurysm. Patent portal vein. PELVIS Reproductive organs: Unremarkable. Bladder: No abnormal wall thickening. Pelvic lymph nodes: No pelvic adenopathy by size criteria. Bones: No aggressive osseous abnormality. Other: Fat-containing umbilical hernia. IMPRESSION: 1. No acute abdominal process. 2. Stable extreme left basilar pulmonary nodule, for which a 6-month follow-up CT chest is recommended. Please refer to a separate report. 3. Cholelithiasis. 4. Mild diverticulosis. Reviewed by: Quinn Johnson MD on 10/20/2025 11:01 AM [facility] Approved by: Quinn Johnson MD on 10/20/2025 11:01 AM PST Station ID: [id number]
[2025-10-20] MEDS: fentaNYL 100 MCG/2 ML VIAL IVP STA (14:08)
--- NOTE | 2025-10-20 17:01 | ED Physician Documentation ---
ED Addendum Addendum Addendum: Patient is a 69-year-old female signed out to me by Dr. Youngblood, see his full H&P on this patient for details. Briefly she has what sounds like an upper and lower GI bleed, dark stools and occasional bright red blood in stool for the past several weeks along with upper back and shoulder pain, CT scan showed calcification of the LAD. She is short of breath, anemic, but above transfusion threshold. No cardiology available here, she sees Dr. Carranza, cardiology at [facility] in [place]. Attempted to contact [place] for transfer for evaluation of her CAD as well as her GI bleed. No beds available at [facility] in [place], [place] in [place] or [facility]. I did speak with on-call cardiology at [place], Dr. Horan who states that with a normal EKG and normal high-sensitivity troponin he feels that the GI bleed is the more urgent issue and I do agree with this assessment. He recommends admitting her to the hospital here working up the GI bleed transfusing to keep hemoglobin above 9 and if symptoms worsen to be contacted for possible transfer. Otherwise he states that they can deal with her heart issues after the GI bleed is stabilized. Discussed the case with Dr. Arevalo, general surgery who will follow along and consult. [facility]. This document was made in part using voice recognition software. While efforts are made to proofread this document, sound alike and grammatical errors may occur. Discharge Plan Discharge Patient Disposition: 66 [facility] DC/Xfer Condition: Stable Clinical Impression: GI bleed, Anemia COPD (chronic obstructive pulmonary disease) Qualifiers: COPD type: COPD with acute exacerbation Qualified Code(s): J44.1 - Chronic obstructive pulmonary disease with (acute) exacerbation
[2025-10-20] MEDS: HYDROmorphone 1 MG/ML CARPUJECT IVP STA (20:13)
[2025-10-20] MEDS: PANTOPRAZOLE 40 MG VIAL IVP STA (20:52)
--- NOTE | 2025-10-20 21:26 | HISTORY & PHYSICAL EXAMINATION ---
Chief Complaint Chief Complaint Chief Complaint: Dyspnea, back pain, melena History of Present Illness Admitted From Admitted From:: Home History Obtained From History obtained from: Patient interview History of Present Illness HPI Comment/Other: 69-year-old female with history of PE, asthma, COPD, hypertension, HFpEF Secondary to [place], who presents with several month history of dark stools. She reports she was switched to Eliquis and Plavix earlier this year, and this is what she believes to be the cause. She denies fever, chills, chest pain, but does report dyspnea without wheezing or congestion. She reports poor appetite, and dark, tarry stools. She also reports intermittent leg swelling, for which she takes Lasix In the ER, initial workup was mostly focused on her dyspnea with exertion and neck/shoulder pain. EKG was performed without ischemic change, high-sensitivity troponin was negative x 1. Patient was initially put in for transfer to outside hospital for better cardiology coverage, but cardiology in [place] reported that she is stable to stay here in setting of normal EKG and nonelevated troponin. Her hemoglobin was 8.6 today, it appears her baseline is 12-13. General surgery was contacted by the ED, who recommended admission to medicine. Hospitalist was contacted, and plans were made to place patient in observation to monitor her hemoglobin and prep for scope in the morning Meds/Allgy Home Medications Ambulatory Orders Medication Instructions Recorded Confirmed tramadol 50 mg tablet 100 mg PO BID 01/02/1410/20 albuterol sulfate 90 mcg/actuation 2 puff inhalation Q 4HR PRN 08/27/16 10/20/25 aerosol inhaler (Ventolin HFA) Shortness Of Air/Wheezi ng losartan 100 mg tablet 100 mg PO DAILY 08/07/2403/11 atorvastatin 80 mg tablet 80 mg PO HS 12/28/24 5 labetalol 100 mg tablet 100 mg PO BID 12/28/2410/20 albuterol sulfate 2.5 mg/3 mL 2.5 mg inhalation Q4H CO N 09/26/25 10/20/25 (0.083 %) solution for nebulization shortness of breat h or wheezing apixaban 5 mg tablet (Eliquis) 5 mg PO QDAY 09/26/25 1 12/21/24 clopidogrel 75 mg tablet 75 mg PO QDAY 09/26/2510/20 empagliflozin 10 mg tablet 10 mg PO QAM 09/26/2510/20 (Jardiance) ethacrynic acid 25 mg tablet 100 mg PO BID 09/26/25 mometasone-formoterol HFA 200 2 puff inhalation BID CO N 09/26/25 10/20/25 mcg-5 mcg/actuation aerosol shortness of breath inhaler (Dulera) spironolactone 25 mg tablet 25 mg PO QAM 09/26/2503/11 Allergies Allergies Allergy/AdvReac Type Severity Reaction Status Date / Time atenolol Allergy Respiratory Verified 10/20/25 08:39 doxycycline Allergy Rash Verified 10/20/25 08:39 hydrochlorothiazide Allergy Rash Verified 10/20/25 08:39 metoprolol Allergy Unknown Verified 10/20/25 08:39 lisinopril AdvReac cough Verified 10/20/25 08:39 PFSH Active Problems All Active Problems (Updated 10/20/25 @ 21:35 by Morris Moscoso DNP) Shoulder pain (Acute) Anemia (Chronic) GI bleed (Acute) History of pulmonary embolus (PE) (Acute) Bronchitis (Acute) Acute exacerbation of COPD with asthma (Acute) Cough (Acute) Chest pain (Acute) Elevated blood pressure reading (Acute) Leg edema (Acute) CHF (congestive heart failure) (Acute) Healing wound (Acute) Finger laceration (Acute) Chronic pain (Acute) Pleural effusion, left (Acute) Pulmonary embolism (Acute) Pleurisy (Acute) Nicotine addiction (Acute) HTN (hypertension) (Acute) RAD (reactive airway disease) (Acute) Bilateral pneumonia (Acute) Hypoxia (Acute) Dyspnea (Acute) Bronchitis (Acute) COPD (chronic obstructive pulmonary disease) (Acute) Surgical History Surgical History History of back surgery Social History Social History (Updated 10/20/25 @ 08:41 by Jessie Ryan RN) Smoking Status: Former smoker If you are a former smoker, when did you quit? (Date/Year): April 2016 Number of Years Smoked: 46 How many cigarettes a day do you smoke? (20 cigarettes=1 Pk): 10 Do you dip or chew tobacco?: No Patient requests smoking cessation consult: No Initiate information on smoking cessation: No Living arrangement: At home Living Condition: With family Support Person: No Home Mobility Equipment: Walker Do you feel safe in your home environment?: Yes History of physical, verbal, emotional, or financial abuse?: No ETOH Use: Beer Frequency: Daily Substance Use: denies use POLST Patient has POLST: No Review of Systems Status of ROS: 10 or more systems reviewed and unremarkable except as noted in history and below Exam Exam Vital Signs: Vital Signs x48h Pulse Resp BP Pulse Ox 10/20/25 17:14 74 18 104/68 96 10/20/25 17:06 77 20 93 10/20/25 15:11 82 16 124/62 100 10/20/25 13:55 75 18 123/66 99 Constitutional normal general appearance and no apparent distress HENMT normocephalic and head/scalp atraumatic Eyes PERRL Neck/C-Spine visual inspection normal Chest inspection of chest normal Respiratory breath sounds equal bilaterally and normal respiratory effort Cardiovascular normal heart rate noted, regular rhythm noted and murmur noted Gastrointestinal Protuberant abdomen, tender left upper quad. Positive bowel tones Extremities normal to inspection Neurology GCS 15 Psychiatry oriented x3 Skin skin color normal Conclusion/Plan Problem List (1) GI bleed: Plan: Patient reports to me that she has history of gastric ulcer that was managed medically. She is also on Plavix and Eliquis. She takes Motrin a few times a week. Denies aspirin use. She also reports fairly regular beer drinking. She has multiple reasons to have a GI bleed. General surgery was contacted by the ED Plan for scope N.p.o. after midnight Clears for now Protonix 40 mg IV twice daily Carafate Trend H&H every 8 (2) Shoulder pain: Plan: This shoulder pain is concerning given it is worse with activity and associated with dyspnea in setting of patient with known CAD Initial troponin and EKG had no ischemic findings Cardiology was contacted by ED provider, who recommended admission here for GI bleed and outpatient follow-up with cardiology I am rechecking a troponin (3) History of pulmonary embolus (PE): Plan: History of PE, had been on Pradaxa, now on Eliquis due to insurance formulary Holding Eliquis for now given acute GI bleed Plan Placed in observation Full code Her granddaughter is her surrogate decision maker Lab Results 10/20/25 09:10 10/20/25 09:10 Core Measures Anticipated LOS I expect patient to be DC'd or transferred within 96 hours.: Yes DVT/VTE - Prophylaxis VTE/DVT Device ordered at admit?: Yes
[2025-10-20] MEDS ORDERED: ONDANSETRON 4 MG/2 ML VIAL IVP PRN (21:44)
[2025-10-20] MEDS ORDERED: ONDANSETRON ODT 4 MG TABLET TL PRN (21:44)
[2025-10-20] MEDS ORDERED: ACETAMINOPHEN 325 MG TABLET PO PRN (21:44)
[2025-10-20 22:06] LABS: HCT - HEMATOCRIT 28.4 % (37.0-47.0); HGB - HEMOGLOBIN 9.0 g/dL (12.0-16.0)
[2025-10-20] MEDS: PANTOPRAZOLE 40 MG VIAL IVP SCH (22:51)
[2025-10-20] MEDS: SUCRALFATE 1 GM/10 ML UDC PO SCH (22:53)
[2025-10-21] MEDS: SODIUM CHLORIDE FLUSH 0.9% 10 ML SYRINGE IVP SCH (00:43)
[2025-10-21] MEDS: HYDROmorphone 0.5 MG/0.5 ML SYRINGE IVP PRN (06:14)
[2025-10-21] MEDS: SODIUM CHLORIDE FLUSH 0.9% 10 ML SYRINGE IVP PRN (06:15)
[2025-10-21 06:54] LABS: HCT - HEMATOCRIT 26.4 % (37.0-47.0); HGB - HEMOGLOBIN 8.3 g/dL (12.0-16.0); MEAN PLATELET VOLUME 9.4 fL (7.9-10.8); NRBC ABSOLUTE COUNT (AUTO) 0.00 x10^3/uL; NUCLEATED RED BLOOD CELLS AUTO 0.0 /100WBC; PLT - PLATELET COUNT 217 10^3/uL (130-450); RED CELL DISTRIBUTION WIDTH 15.6 % (12.0-15.0)
[2025-10-21 07:11] LABS: BUN - BLOOD UREA NITROGEN 38.0 mg/dL (6-20); CARBON DIOXIDE - CO2 26.0 mmol/L (21-32); CREATININE 1.2 mg/dL (0.6-1.3); GFR - MDRD 45.0 (>89)
--- NOTE | 2025-10-21 08:19 | CONSULTATION NOTE ---
History of Present Illness History of Present Illness HPI Comment/Other: 69-year-old female with history of PE (on Eliquis), asthma, COPD, hypertension, HFpEF Secondary to [place] in December (s/p PCI x1, Echo in May w/ EF 65-70%) who presents with several month history of dark stools, LUQ abdominal pain and shoulder and neck pain relieved with nitro. She reports she was started on Eliquis several years ago due to an unprovoked PE and was started on Plavix after her stent placement earlier this year. She believed this is what is causing her dark stools. She also states that she has not been able to eat for a few months due to abdominal pain while eating. She also reports intermittent leg swelling, for which she takes Lasix. She denies fever, chills, chest pain, but does report dyspnea without wheezing or congestion. She also report that for the past few months she has been having shoulder/upper neck pain and dypsnea with exertion. She has been taking tylenol and ibuprofen for this but she states the only thing that relieves the pain is Nitro. She states that she has been taking Motrin at least 3 times a week for several weeks. In the ER an EKG was performed without ischemic change, high-sensitivity troponin was negative x 2. Patient was initially put in for transfer to outside hospital for better cardiology coverage, but cardiology in [place] reported that she is stable to stay here in setting of normal EKG and nonelevated troponin. Her hemoglobin was 8.6 in the ED, it appears her baseline is 12-13. General surgery was contacted by the ED, who recommended that the patient be transferred to a facility with Cardiology because she is high risk for cardiac event perioperatively with her cardiac symptoms. ED stated that they were unable to transfer the patient and the patients Crts recommended that she be monitored at our hospital. Hospitalist was then contacted and plans were made to place patient in observation to monitor her hemoglobin. [facility] Active Problems All Active Problems (Updated 10/21/25 @ 03:04 by Dahiana Welch RN) Shoulder pain (Acute) Anemia (Chronic) GI bleed (Acute) History of pulmonary embolus (PE) (Acute) Bronchitis (Acute) Acute exacerbation of COPD with asthma (Acute) Cough (Acute) Chest pain (Acute) Elevated blood pressure reading (Acute) Leg edema (Acute) CHF (congestive heart failure) (Acute) Healing wound (Acute) Finger laceration (Acute) Chronic pain (Acute) Pleural effusion, left (Acute) Pulmonary embolism (Acute) Pleurisy (Acute) Nicotine addiction (Acute) HTN (hypertension) (Acute) RAD (reactive airway disease) (Acute) Bilateral pneumonia (Acute) Hypoxia (Acute) Dyspnea (Acute) Bronchitis (Acute) COPD (chronic obstructive pulmonary disease) (Acute) Medical History Medical History (Updated 10/21/25 @ 03:04 by Dahiana Welch RN) Insomnia Diverticulosis DJD (degenerative joint disease) Right sided sciatica Chronic back pain Hyperaldosteronism Ischemic cardiomyopathy CAD (coronary artery disease) Asthma History of placement of stent in LAD coronary artery Back pain with history of spinal surgery Surgical History Surgical History (Updated 10/21/25 @ 03:04 by Dahiana Welch RN) History of tubal ligation History of breast surgery History of eye surgery History of section Status post coronary artery stent placement Status post percutaneous coronary intervention (PCI) History of tonsillectomy and adenoidectomy History of video-assisted thoracoscopic surgery (VATS) History of back surgery Social History Social History (Updated 10/20/25 @ 08:41 by Jessie Ryan RN) Smoking Status: Former smoker If you are a former smoker, when did you quit? (Date/Year): April 2016 Number of Years Smoked: 46 How many cigarettes a day do you smoke? (20 cigarettes=1 Pk): 10 Do you dip or chew tobacco?: No Do you vape?: No Patient requests smoking cessation consult: No Initiate information on smoking cessation: No Living arrangement: At home Living Condition: With family Support Person: No Level: Independent Home Mobility Equipment: Wheeled walker Do you feel safe in your home environment?: Yes History of physical, verbal, emotional, or financial abuse?: No ETOH Use: Beer Frequency: Daily Substance Use: denies use POLST Patient has POLST: No Meds/Allgy Home Medications Ambulatory Orders Medication Instructions Recorded Confirmed tramadol 50 mg tablet 100 mg PO BID 01/02/1410/20 albuterol sulfate 90 mcg/actuation 2 puff inhalation Q 4HR PRN 08/27/16 10/20/25 aerosol inhaler (Ventolin HFA) Shortness Of Air/Wheezi ng losartan 100 mg tablet 100 mg PO DAILY 08/07/2403/11 atorvastatin 80 mg tablet 80 mg PO HS 12/28/24 5 labetalol 100 mg tablet 100 mg PO BID 12/28/2410/20 albuterol sulfate 2.5 mg/3 mL 2.5 mg inhalation Q4H NE N 09/26/25 10/20/25 (0.083 %) solution for nebulization shortness of breat h or wheezing apixaban 5 mg tablet (Eliquis) 5 mg PO QDAY 09/26/25 1 12/21/24 clopidogrel 75 mg tablet 75 mg PO QDAY 09/26/2510/20 empagliflozin 10 mg tablet 10 mg PO QAM 09/26/2510/20 (Jardiance) ethacrynic acid 25 mg tablet 100 mg PO BID 09/26/25 mometasone-formoterol HFA 200 2 puff inhalation BID NE N 09/26/25 10/20/25 mcg-5 mcg/actuation aerosol shortness of breath inhaler (Dulera) spironolactone 25 mg tablet 25 mg PO QAM 09/26/2503/11 Allergies Allergies Allergy/AdvReac Type Severity Reaction Status Date / Time atenolol Allergy Respiratory Verified 10/20/25 08:39 doxycycline Allergy Rash Verified 10/20/25 08:39 hydrochlorothiazide Allergy Rash Verified 10/20/25 08:39 metoprolol Allergy Unknown Verified 10/20/25 08:39 lisinopril AdvReac cough Verified 10/20/25 08:39 Results Lab Results Lab results reviewed: Yes 10/21/25 06:11 10/21/25 06:11 Other Lab Results: Lab Results x24hrs 10/21/25 10/20/25 10/20/25 Range/Units 06:11 22:00 21:41 WBC 4.9 (4.8-10.8) x10^3/uL RBC 2.56 L (4.20-5.40) 10^6/uL Hgb 8.3 L 9.0 L (12.0-16.0) g/dL Hct 26.4 L 28.4 L (37.0-47.0) % MCV 103.1 H (81.0-99.0) fL MCH 32.4 H (27.0-31.0) pg MCHC 31.4 L (32.0-36.0) g/dL RDW 15.6 H (12.0-15.0) % Plt Count 217 (130-450) 10^3/uL MPV 9.4 (7.9-10.8) fL Neut # (Auto) 3.6 (1.5-6.6) 10^3/uL Lymph # (Auto) 0.4 L (1.5-3.5) 10^3/uL [place] # (Auto) 0.6 (0.0-1.0) 10^3/uL Eos # (Auto) 0.2 (0.0-0.7) 10^3/uL Baso # (Auto) 0.0 (0.0-0.1) 10^3/uL Absolute Nucleated RBC 0.00 x10^3/uL Nucleated RBC % 0.0 /100WBC Sodium 133 L (135-145) mmol/L Potassium 4.1 (3.5-4.5) mmol/L Chloride 98 L (101-111) mmol/L Carbon Dioxide 26 (21-32) mmol/L Anion Gap 9.0 (6-13) BUN 38 H (6-20) mg/dL Creatinine 1.2 (0.6-1.3) mg/dL Estimated GFR (MDRD) 45 L (>89) Glucose 107 H (74-104) mg/dL Calcium 9.1 (8.5-10.3) mg/dL Total Bilirubin (0.2-1.0) mg/dL AST (10-42) IU/L ALT (10-60) IU/L Alkaline Phosphatase (42-121) IU/L Troponin I High Sens 5.5 (2.3-14.8) ng/L B-Natriuretic Peptide (5-100) pg/mL Total Protein (6.4-8.9) g/dL Albumin (3.2-5.5) g/dL Globulin (2.1-4.2) g/dL Albumin/Globulin Ratio (1.0-2.2) Blood Type Blood Type Recheck O POSITIVE Antibody Screen 10/20/25 10/20/25 Range/Units 21:08 09:10 WBC 5.4 (4.8-10.8) x10^3/uL RBC 2.62 L (4.20-5.40) 10^6/uL Hgb 8.6 L (12.0-16.0) g/dL Hct 27.2 L (37.0-47.0) % MCV 103.8 H (81.0-99.0) fL MCH 32.8 H (27.0-31.0) pg MCHC 31.6 L (32.0-36.0) g/dL RDW 15.4 H (12.0-15.0) % Plt Count 208 (130-450) 10^3/uL MPV 9.1 (7.9-10.8) fL Neut # (Auto) 4.1 (1.5-6.6) 10^3/uL Lymph # (Auto) 0.4 L (1.5-3.5) 10^3/uL [place] # (Auto) 0.6 (0.0-1.0) 10^3/uL Eos # (Auto) 0.2 (0.0-0.7) 10^3/uL Baso # (Auto) 0.0 (0.0-0.1) 10^3/uL Absolute Nucleated RBC 0.00 x10^3/uL Nucleated RBC % 0.0 /100WBC Sodium 133 L (135-145) mmol/L Potassium 3.9 (3.5-4.5) mmol/L Chloride 96 L (101-111) mmol/L Carbon Dioxide 25 (21-32) mmol/L Anion Gap 12.0 (6-13) BUN 41 H (6-20) mg/dL Creatinine 1.5 H (0.6-1.3) mg/dL Estimated GFR (MDRD) 35 L (>89) Glucose 92 (74-104) mg/dL Calcium 9.1 (8.5-10.3) mg/dL Total Bilirubin 0.7 (0.2-1.0) mg/dL AST 16 (10-42) IU/L ALT 17 (10-60) IU/L Alkaline Phosphatase 86 (42-121) IU/L Troponin I High Sens 5.5 (2.3-14.8) ng/L B-Natriuretic Peptide 43 (5-100) pg/mL Total Protein 6.3 L (6.4-8.9) g/dL Albumin 3.7 (3.2-5.5) g/dL Globulin 2.6 (2.1-4.2) g/dL Albumin/Globulin Ratio 1.4 (1.0-2.2) Blood Type O POSITIVE Blood Type Recheck Antibody Screen NEGATIVE Diagnostic Imaging Results Diagnostic Imaging Results: positive Final report reviewed and Read independently Review of Systems Status of ROS: 10 or more systems reviewed and unremarkable except as noted in history and below Exam Exam Vital Signs: Vital Signs x48h Temp Pulse Resp BP Pulse Ox 10/21/25 07:49 36.7 C 74 24 141/74 H 96 10/21/25 04:18 36.6 C 72 22 119/61 93 10/21/25 00:34 36.6 C 73 22 125/59 L 96 Constitutional normal general appearance and abnormal body habitus (obese) HENMT normocephalic and head/scalp atraumatic Eyes conjunctivae normal and no scleral icterus Neck/C-Spine visual inspection normal Respiratory normal respiratory effort Cardiovascular normal heart rate noted and regular rhythm noted Gastrointestinal abdomen normal to inspection, abdomen soft to palpation and tender to palpation (mild) and (LUQ) Extremities normal to inspection Neurology GCS 15 Psychiatry cooperative and affect normal Skin skin color normal Conclusion/Plan Problem List (1) GI bleed: (2) Shoulder pain: (3) History of pulmonary embolus (PE): Plan 69-year-old female with history of PE (on Eliquis), asthma, COPD, hypertension, HFpEF Secondary to [place] in December (s/p PCI x1, Echo in May w/ EF 65-70%) who presents with several month history of dark stools, LUQ abdominal pain and shoulder and neck pain relieved with nitro. Originally planned for transfer but per the ED they were unable to transfer the patient and the patients Crts recommended that she be monitored at our hospital, even though we do not have cardiology coverage or interventional capabilities. Hgb on arrival to the ED was 8.6, on repeat it was 9 so no transfusion was given, this morning however it is back to 8.3. Multidisciplinary discussion was held with IM, anesthesia and surgery this morning. This patient has evidence of GI bleed and should undergo endoscopic evaluation but due to her cardiac symptoms she is high risk for perioperative cardiac events and should undergo procedures at a hospital with cardiology coverage and interventional capabilities. Furthermore, the OR will be on diversion today starting at 3PM and if she were to require any re-intervention after a procedure this would not be possible until Friday. Due to these reasons the recommendation is that the patient be transferred out for further intervention. - Recommend transfer for GI bleed management - Discussed with Anesthesia team, Surgery team and the Primary - Rest of care per primary - Please reach out with questions and/or concerns Lab Results Lab results reviewed: Yes 10/21/25 06:11 10/21/25 06:11 Diagnostic Imaging Results Diagnostic Imaging Results: positive Final report reviewed and Read independently
--- NOTE | 2025-10-21 13:34 | Discharge Summary ---
Discharge Summary Admit Date: 10/20/25 Discharge Date: 10/21/25 Discharging Provider: Morris Moscoso Primary Care Provider: Kulwant Babin Code Status: Attempt Resuscitation DIAGNOSES Discharge Diagnoses with Status of Each Condition: GI bleedstable. Ordered 1 unit PRBC Shoulder pain, bilateralconcern for unstable angina. Troponins nonelevated, but it is worse with activity and relieved by nitro History of PEEliquis on hold GI bleed HPI History of Present Illness: 69-year-old female with history of PE, asthma, COPD, hypertension, HFpEF Secondary to [place], who presents with several month history of dark stools. She reports she was switched to Eliquis and Plavix earlier this year, and this is what she believes to be the cause. She denies fever, chills, chest pain, but does report dyspnea without wheezing or congestion. She reports poor appetite, and dark, tarry stools. She also reports intermittent leg swelling, for which she takes Lasix In the ER, initial workup was mostly focused on her dyspnea with exertion and neck/shoulder pain. EKG was performed without ischemic change, high-sensitivity troponin was negative x 1. Patient was initially put in for transfer to outside hospital for better cardiology coverage, but cardiology in [place] reported that she is stable to stay here in setting of normal EKG and nonelevated troponin. Her hemoglobin was 8.6 today, it appears her baseline is 12-13. General surgery was contacted by the ED, who recommended admission to medicine. Hospitalist was contacted, and plans were made to place patient in observation to monitor her hemoglobin and prep for scope in the morning HOSPITAL COURSE Hospital Course: Patient was placed in observation and hemoglobin was trended. Anesthesia expressed concern over the unstable angina given the resources available at this hospital. Transfer center was contacted, and patient is being transferred to [facility] for higher level of care ALLERGIES Allergies Allergy/AdvReac Type Severity Reaction Status Date / Time atenolol Allergy Respiratory Verified 10/20/25 08:39 doxycycline Allergy Rash Verified 10/20/25 08:39 hydrochlorothiazide Allergy Rash Verified 10/20/25 08:39 metoprolol Allergy Unknown Verified 10/20/25 08:39 lisinopril AdvReac cough Verified 10/20/25 08:39 MEDICATIONS Ambulatory Orders Medication Instructions Recorded Confirmed tramadol 50 mg tablet 100 mg PO BID 01/02/1410/20 albuterol sulfate 90 mcg/actuation 2 puff inhalation Q 4HR PRN 08/27/16 10/20/25 aerosol inhaler (Ventolin HFA) Shortness Of Air/Wheezi ng losartan 100 mg tablet 100 mg PO DAILY 08/07/2403/11 atorvastatin 80 mg tablet 80 mg PO HS 12/28/24 5 labetalol 100 mg tablet 50 mg PO BID 12/28/24 albuterol sulfate 2.5 mg/3 mL 2.5 mg inhalation Q4H MN N 09/26/25 10/20/25 (0.083 %) solution for nebulization shortness of breat h or wheezing apixaban 5 mg tablet (Eliquis) 5 mg PO BID 09/26/25 clopidogrel 75 mg tablet 75 mg PO QDAY 09/26/2510/20 empagliflozin 10 mg tablet 10 mg PO QAM 09/26/2510/20 (Jardiance) ethacrynic acid 25 mg tablet 100 mg PO BID 09/26/25 mometasone-formoterol HFA 200 2 puff inhalation BID MN N 09/26/25 10/20/25 mcg-5 mcg/actuation aerosol shortness of breath inhaler (Dulera) spironolactone 25 mg tablet 25 mg PO QAM 09/26/2504/10 nitroglycerin 0.4 mg sublingual 0.4 mg sublingual CODY Y PRN neck 10/21/25 10/21/25 tablet pain PHYSICAL EXAM AT DISCHARGE Vital Signs: Vital Signs x48h Temp Pulse Resp BP Pulse Ox 10/21/25 15:17 98.1 F 78 20 154/77 H 94 10/21/25 15:17 97.2 F L 71 20 137/65 H 94 10/21/25 13:50 97.9 F 74 20 130/61 93 10/21/25 13:30 97.2 F L 73 20 129/62 96 10/21/25 12:00 98.1 F 74 20 131/74 H 95 Physical Exam Other/Comments: Constitutional normal general appearance and no apparent distress HENMT normocephalic and head/scalp atraumatic Eyes PERRL Neck/C-Spine visual inspection normal Chest inspection of chest normal Respiratory breath sounds equal bilaterally and normal respiratory effort Cardiovascular normal heart rate noted, regular rhythm noted and murmur noted Gastrointestinal Protuberant abdomen, tender left upper quad. Positive bowel tones Extremities normal to inspection Neurology GCS 15 Psychiatry oriented x3 Skin skin color normal LABS 10/21/25 06:11 10/21/25 06:11 FOLLOW UP Follow Up: She will need follow-up with PCP after her stay this next hospital TIME SPENT Time Spent in Discharge (Minutes): 39 Discharge Plan Discharge Patient Disposition: 02 Transfer Acute Care Hosp Condition: Stable Prescriptions: No Action tramadol 50 MG tablet 100 mg PO BID albuterol sulfate [Ventolin HFA] 200 PUFFS/18 GM HFA aerosol inhaler 2 puff inhalation Q4HR PRN (Reason: Shortness Of Air/Wheezing) losartan 100 MG tablet 100 mg PO DAILY Patient Comments: TAKE ONE TABLET BY MOUTH EVERY MORNING atorvastatin 80 mg tablet 80 mg PO HS Patient Comments: TAKE ONE TABLET BY MOUTH ONE TIME DAILY labetalol 100 mg tablet 50 mg PO BID nitroglycerin 0.4 mg tablet, sublingual 0.4 mg sublingual DAILY PRN (Reason: neck pain) albuterol sulfate 2.5 mg /3 mL (0.083 %) solution for nebulization 2.5 mg inhalation Q4H PRN (Reason: shortness of breath or wheezing) ethacrynic acid 25 mg tablet 100 mg PO BID clopidogrel 75 mg tablet 75 mg PO QDAY spironolactone 25 mg tablet 25 mg PO QAM Dulera 200-5 mcg/actuation HFA aerosol inhaler 2 puff inhalation BID PRN (Reason: shortness of breath) Patient Comments: INHALE TWO PUFFS BY MOUTH TWICE DAILY Eliquis 5 mg tablet 5 mg PO BID Jardiance 10 mg tablet 10 mg PO QAM Interventions: Belongings Inventory Last Done: 10/21/25 14:30 Discharge Last Done: 10/21/25 14:30 Discharge Checklist - Nursing Last Done: 10/21/25 14:30 Discharge Vital Signs (30 Minutes) Last Done: 10/21/25 15:17 Print Language: Bhutanese Stand Alone Forms: PCP List Follow-up Care: Kulwant Babin [Primary Care Provider, Family Practice] Report called to and time (if no answer, doc. time of each call attempted): 1 12/22/24 at 1545 to Amelia Raymond, Charge Nurse, Marilee Morgan. Vitals documented within 30 minutes of discharge?: Yes (Vital signs documented at 1517)
--- NOTE | 2025-10-21 13:49 | PHARMACY PROGRESS NOTE ---
Best Possible Medication History Admit Date and Time: 10/20/252024 Home Medications Medication Instructions Recorded Confirmed Type tramadol 50 mg tablet 100 mg PO BID 01/02/1410/20 History albuterol sulfate 90 mcg/actuation 2 puff inhalation Q 4HR PRN 08/27/16 10/20/25 History aerosol inhaler (Ventolin HFA) Shortness Of Air/Wheezi ng losartan 100 mg tablet 100 mg PO DAILY 08/07/2403/11 History atorvastatin 80 mg tablet 80 mg PO HS 12/28/24 5 History labetalol 100 mg tablet 50 mg PO BID 12/28/24 History albuterol sulfate 2.5 mg/3 mL 2.5 mg inhalation Q4H OH N 09/26/25 10/20/25 History (0.083 %) solution for nebulization shortness of breat h or wheezing apixaban 5 mg tablet (Eliquis) 5 mg PO BID 09/26/25 History clopidogrel 75 mg tablet 75 mg PO QDAY 09/26/2510/20 History empagliflozin 10 mg tablet 10 mg PO QAM 09/26/2510/20 History (Jardiance) ethacrynic acid 25 mg tablet 100 mg PO BID 09/26/25 History mometasone-formoterol HFA 200 2 puff inhalation BID OH N 09/26/25 10/20/25 History mcg-5 mcg/actuation aerosol shortness of breath inhaler (Dulera) spironolactone 25 mg tablet 25 mg PO QAM 09/26/2504/10 History nitroglycerin 0.4 mg sublingual 0.4 mg sublingual CODY Y PRN neck 10/21/25 10/21/25 History tablet pain Processed by: Pharmacy Medications reviewed in ED?: No Medication History completed: Yes Patient Interview: Completed Secondary Source(s): Pharmacy records and Insurance records [facility] Statement: As the person ultimately responsible for medication therapy, providers are able to order a medication from an existing home medication list in [facility] via the "Reconcile Routine" prior to Confirmation of that medication by field support specialist. Such practice is discouraged except when the physician, in their clinical judgment, deems that a medical need exists for a medication without regard to previous use.
[2025-10-21 16:03] VITALS: O2SAT 94
[2025-10-21 16:16] VITALS: BP 154/77; TEMP 98.1
--- OUTSIDE RECORDS SUMMARY | 2025-10-23 04:30 | EXTERNAL MEDICAL SUMMARY RPT | Encounter Summary ---
Author Organization [facility] Address [address] [place] [address] Care Team Providers Care Notch Grinder Name Role Phone AngelFederica CLAUDIA Primary Care Provider [phone] Encounter Details Date Type Department Care Team (Late st Contact Info) Description 10/20/2025 12:55 PM PST Imaging Exam [facility] EXTERNAL IM[facility] [address] [place] [phone] Provider, Tete, [address] [place] [address]. [place] [address] Arrived Social History Tobacco Use Types Packs/Day Years Used Date Smoking Tobacco: Former Cigarettes 1 46 0 04/17/1970 - 04/17/2016 Alcohol Use Standard Drinks/Week Comments No 0 (1 standard drink = 0.6 oz pur e alcohol) 2 beers each night Comments Unknown Sex and Gender Information Value Date Recorded Sex Assigned at Not on file Legal Sex Female 2:00 PM PDT Gender Identity Not on file Sexual Orientation Not on file documented as of this encounter Plan of Treatment Not on file documented as of this encounter Procedures Procedure Name Priority Date/Time Associated Diagnosis Comments CT ABDOMEN PELVIS W IV CONTRAST Routine 10/20/2025 12:45 PM PST documented in this encounter Results * CT Abdomen Pelvis w IV Contrast (10/20/2025 12:45 PM PST) Narrative [facility] - 10/20/2025 12:45 PM PST External films for comparison only - No results will be in the chart. Historical Provider MD [place] CT ORDERABLES Final R esult [facility] documented in this encounter Visit Diagnoses Not on filedocumented in this encounter Care Teams Notch Grinder Relationship Specialty Start Date End Date Federica Ortiz ARNP [address] [place] [address] PCP - General Family Nurse Practitioner 08/30/16 documented as of this encounter
--- OUTSIDE RECORDS SUMMARY | 2025-10-23 04:30 | EXTERNAL MEDICAL SUMMARY RPT | Encounter Summary ---
Author Organization [facility] Address [address] [place] [address] Care Team Providers Care Fisheries Diver Name Role Phone Kulwant Babin MD Primary Care Provider + Encounter Details Date Type Department Care Team (Late Contact Info) Description 07/25/2025 Abstract CARDIOLOGY [place] [address] [place] [address] Sherry Matias MA [address] [facility] [address] [place] [address] Social History Tobacco Use Types Packs/Day Years Used Date Smoking Tobacco: Former Cigarettes 0.5 53 S tarted: 1971 Smokeless Tobacco: Never Alcohol Use Standard Drinks/Week Comments Yes 15 (1 standard drink = 0.6 oz pu re alcohol) Comments Unknown Sex and Gender Information Value Date Recorded Sex Assigned at Not on file Legal Sex Female 5:44 PM PDT Gender Identity Not on file Sexual Orientation Not on file documented as of this encounter Plan of Treatment Upcoming Encounters Date Type Department Care Team (Late Contact Info) Description 11/14/2025 2:45 PM PST Follow-Up CARDIOLOGY [place], [place] [address] [place] [address] Keyona Mercado AIRCRAFT CAPTAIN [address] [place] [address] documented as of this encounter Visit Diagnoses Not on filedocumented in this encounter Care Teams Fisheries Diver Relationship Specialty Start Date End Date Kulwant Babin MD [address] [place] [phone] PCP - General Family Medicine 10/09/22 documented as of this encounter
--- OUTSIDE RECORDS SUMMARY | 2025-10-23 04:30 | EXTERNAL MEDICAL SUMMARY RPT | Clinical Summary ---
Author Organization [facility] Address [facility] [address] Care Team Providers Care Architectural Practice Manager Name Role Phone Kulwant Babin MD Primary Care Provider + Allergies Active Allergy Reactions Criticality Noted Date Comments Atenolol Other (See Comments),Rash High 08/30/2016 Other reaction(s): lungs fill up with fluid Fluid in lungs Other reaction(s): lungs fill up with fluid Fluid in lungs Doxycycline Hives High 08/30/2016 Hydrochlorothiazide Rash High 04/02/2013 Other reaction(s): Hives/Blisters Lisinopril Other (See Comments),Cough Medium 04/30/2013 Metoprolol Low 02/19/2017 Other reaction(s): hair loss Medications albuterol 2.5 mg /3 mL (0.083 %) nebulizer solution Inhale 2.5 mg into the lungs every 4 to 6 hours as needed Active albuterol 90 mcg/actuation inhaler Inhale 2 puffs into the lungs every 4 (four) hours as needed 12/15/19 25 Active cholecalciferol, vitamin D3, 125 mcg (5,000 unit) capsule Take 5,000 Units by mouth daily Active clopidogreL (PLAVIX) 75 mg tablet Take 75 mg by mouth daily 01/02/20 25 Active cyanocobalamin (VITAMIN B-12) 1000 MCG tablet Take 4,000 mcg by mouth daily Active empagliflozin (JARDIANCE) 10 mg tablet Take 10 mg by mouth every morning 01/01/20 25 Active labetaloL (NORMODYNE) 100 MG tablet Take 50 mg by mouth Twice a day 12/16/19 25 Active losartan (COZAAR) 100 MG tablet Take 100 mg by mouth daily 10/17/20 24 Active traMADoL (ULTRAM) 50 mg tablet Take 50 mg by mouth every 8 (eight) hours as needed for Pain Active atorvastatin (LIPITOR) 80 MG tablet Take 1 tablet by mouth Daily at 7:00 PM 03/20/20 25 Active nitroGLYCERIN (NITROSTAT) 0.4 MG SL tablet take 1 tablet sublingually every 5 Minutes as needed for chest pain not to exceed 3 doses in 15 minutes if pain persists, seek medical attention 01/10/20 25 Active loratadine (CLARITIN) 10 mg tablet TAKE ONE TABLET BY MOUTH ONE TIME DAILY during allergy season. 01/11/20 25 Active ethacrynic acid (EDECRIN) 25 mg tablet Take 50 mg by mouth Twice a day 04/20/20 25 Active betamethasone dipropionate 0.05 % cream Apply to affected skin twice daily for 10 to 14 days. 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) 04/20/2025 Chronic heart failure with preserved ejection fr action 04/20/2025 Coronary artery disease invo lving umatilla tribe coronary artery of umatilla tribe heart without angina pectoris 04/20/2025 Overview (04/20/2025): NSTEMI 12/2024 treated with ARCADIO to LAD 12/2024 Ankle edema, bilateral 04/20/2025 Essential hypertension, benign 04/18/2025 Fatigue 04/18/2025 Shortness of breath 04/18/2025 COPD (chronic obstructive pulmonary disease) 12/2024 Hyperlipidemia 04/18/2025 History of pulmonary embolism 04/18/2025 Encounters Date Type Department Care Team Description 10/07/2025 Scanned Document SCANNED ONLY Scanned, Document 10/06/2025 Order Tire Duster CARDIOLOGY - [facility] [id number] [facility] [address] [phone] Kulwant Babin MD Heart failure, unspecified HF chronicity, unspecified heart failure type (CMS/HCC); Edema, unspecified type 08/02/2025 Scanned Document SCANNED ONLY Scanned, Document 08/01/2025 Telephone [facility] [id number] [facility] [phone] Harvinder Carranza MD [place] pt how many nitro can you take in a day? 07/25/2025 2:20 PM PDT Follow-Up [address] [address] Harvinder Carranza MD Chronic heart failure with preserved ejection fraction (CMS/HCC); Coronary artery disease involving umatilla tribe coronary artery of umatilla tribe heart without angina pectoris; Ankle edema, bilateral 07/25/[address] [address] Sherry Matias MA from Last 3 Months Social History Tobacco Use Types Packs/Day Years Used Date Smoking Tobacco: Former Cigarettes 0.5 53 S tarted: 1971 Smokeless Tobacco: Never Tobacco Cessation:Counseling Given: Not Answered Alcohol Use Standard Drinks/Week Comments Yes 15 (1 standard drink = 0.6 oz pu re alcohol) Comments Unknown Sex and Gender Information Value Date Recorded Sex Assigned at Not on file Legal Sex Female 5:44 PM PDT Gender Identity Not on file Sexual Orientation Not on file Last Filed Vital Signs Vital Sign Reading Time Taken Comments Blood Pressure 155/80 07/25/2025 2:40 PM PDT right arm sitting Pulse 76 07/25/2025 2:20 PM PDT Temperature - - Respiratory Rate - - Oxygen Saturation 95% 04/20/2025 2:2 8 PM PDT Inhaled Oxygen Concentration - - Weight 102.5 kg (226 lb) 07/25/2025 2:2 0 PM PDT Height 157.5 cm (5' 2") 07/25/2025 2:20 PM PDT Body Mass Index 41.34 07/25/2025 2:20 PM PDT Plan of Treatment Upcoming Encounters Date Type Department Care Team (Late st Contact Info) Description 11/14/2025 2:45 PM PST Follow-Up CARDIOLOGY - [place], [place] [address] [place] [phone] Keyona Mercado CONE BAKER MACHINE [address] [place] [address] Health Maintenance Due Date Last Done Comments CT Colonography 1957 Colonoscopy 1957 Colorectal Cancer Screening 1957 Diabetes Screening 1957 Disability Screening 1957 FIT-DNA (COLOGUARD) 1957 Hepatitis C Screening 1957 Sigmoidoscopy 1957 Basic Metabolic Panel 1975 Lipid Panel (Cholesterol Screening) 1975 Breast Cancer Screening 1997 FIT (FOBT) 2002 RSV Vaccines (1 - Risk 50-74 years 1-dose series) 11/17 Pneumococcal 50+ Years (2 of 2 - PCV) 06/30/2015 Zoster (2 of 3) 10/06/2017 08/11/2017 Osteoporosis Screening 2022 Medicare Initial Annual Wellness Visit [id number] DTaP/Tdap/Td Vaccine (2 - Td or Tdap) 06/30/2024 Drug, Alcohol, and Depression Screening 11/17/2024 SOGIE 11/17/2024 Covid-19 Vaccine (1 - season) 2025 Influenza Vaccine (#1) 2025 09/29/2017 Insurance [employer] MEDICARE [employer] Care Teams Architectural Practice Manager Relationship Specialty Start Date End Date Kulwant Babin MD [address] [facility] [address] [place] [phone] PCP - General Family Medicine 10/09/22
--- OUTSIDE RECORDS SUMMARY | 2025-10-23 04:30 | EXTERNAL MEDICAL SUMMARY RPT | Encounter Summary ---
Author Organization [facility] Address [address] [place] [address] Care Team Providers Care Ore Fielder Name Role Phone AngelFederica CLAUDIA Primary Care Provider [phone] Encounter Details Date Type Department Care Team (Late st Contact Info) Description 10/20/2025 12:50 PM PST Imaging Exam [facility] EXTERNAL IMAG[facility] [address] [place] [phone] Provider, Tete, [address] [place] [address]. [place] [address] Arrived Social History Tobacco Use Types Packs/Day [...] Name Priority Date/Time Associated Diagnosis Comments CT THORACIC SPINE WO CONTRAST Routine 10/20/2025 12:45 PM PST documented in this encounter Results * CT Thoracic Spine wo Contrast (10/20/2025 12:45 PM PST) Narrative [facility] - 10/20/2025 12:45 PM PST External films for comparison only - No results will be in the chart. Historical Provider MD [place] CT ORDERABLES Final R esult [facility] documented in this encounter Visit Diagnoses Not on filedocumented in this encounter Care Teams Ore Fielder Relationship Specialty Start Date End Date Federica Ortiz ARNP [address] [place] [address] PCP - General Family Nurse Practitioner 08/30/16 documented as of this encounter
--- OUTSIDE RECORDS SUMMARY | 2025-10-23 04:30 | EXTERNAL MEDICAL SUMMARY RPT | Encounter Summary ---
Author Organization [facility] Address [address] [place] [address] Care Team Providers Care Beater Boss Name Role Phone Kulwant Babin MD Primary Care Provider + Encounter Details Date Type Department Care Team (Late st Contact Info) Description 01/10/2025 Scanned Document SCANNED ONLY Scanned, Document Social History Tobacco Use Types Packs/Day Years Used Date Smoking Tobacco: Never Assessed Comments Unknown Sex and Gender Information Value Date Recorded Sex Assigned at Not on file Legal Sex Female 5:44 PM PDT Gender Identity Not on file Sexual Orientation Not on file documented as of this encounter Plan of Treatment Upcoming Encounters Date Type Department Care Team (Late st Contact Info) Description 11/14/2025 2:45 PM PST Follow-Up CARDIOLOGY - [place], [place] [address] [place] [phone] Keyona Mercado NP [address] [place] [phone] documented as of this encounter Visit Diagnoses Not on filedocumented in this encounter Care Teams Beater Boss Relationship Specialty Start Date End Date Kulwant Babin MD [address] [place] [address] [place] [phone] PCP - General Family Medicine 10/09/22 documented as of this encounter
--- OUTSIDE RECORDS SUMMARY | 2025-10-23 04:30 | EXTERNAL MEDICAL SUMMARY RPT | Encounter Summary ---
Author Organization [facility] Address [address] [place] [address] Care Team Providers Care Color Separation Photographer Name Role Phone Kulwant Babin MD Primary Care Provider + Encounter Details Date Type Department Care Team (Late st Contact Info) Description 08/29/2022 Scanned Document SCANNED ONLY Scanned, Document Social [...] 11/14/2025 2:45 PM PST Follow-Up CARDIOLOGY - [place], [place] [address] [place] [phone] Keyona Mercado NP [address] [place] [phone] documented as of this encounter Visit Diagnoses Not on filedocumented in this encounter Care Teams Color Separation Photographer Relationship Specialty Start Date End Date Kulwant Babin MD [address] [place] [address] [place] [phone] PCP - General Family Medicine 10/09/22 documented as of this encounter
--- OUTSIDE RECORDS SUMMARY | 2025-10-23 04:30 | EXTERNAL MEDICAL SUMMARY RPT | Encounter Summary ---
Author Organization [facility] Address [address] [place] [address] Care Team Providers Care Transit Driver Name Role Phone Kulwant Babin MD Primary Care Provider + Encounter Details Date Type Department Care Team (Late st Contact Info) Description 12/30/2024 Scanned Document SCANNED ONLY Scanned, Document Social [...] 11/14/2025 2:45 PM PST Follow-Up CARDIOLOGY - [place], [place] [address] [place] [phone] Keyona Mercado NP [address] [place] [phone] documented as of this encounter Visit Diagnoses Not on filedocumented in this encounter Care Teams Transit Driver Relationship Specialty Start Date End Date Kulwant Babin MD [address] [place] [address] [place] [phone] PCP - General Family Medicine 10/09/22 documented as of this encounter
--- OUTSIDE RECORDS SUMMARY | 2025-10-23 04:30 | EXTERNAL MEDICAL SUMMARY RPT | Encounter Summary ---
Author Organization [facility] Address [address] [place] [address] Care Team Providers Care Buying Intern Name Role Phone Kulwant Babin MD Primary Care Provider + Encounter Details Date Type Department Care Team (Late st Contact Info) Description 08/02/2024 Scanned Document SCANNED ONLY Scanned, Document Social [...] 11/14/2025 2:45 PM PST Follow-Up CARDIOLOGY - [place], [place] [address] [place] [phone] Keyona Mercado NP [address] [place] [phone] documented as of this encounter Visit Diagnoses Not on filedocumented in this encounter Care Teams Buying Intern Relationship Specialty Start Date End Date Kulwant Babin MD [address] [place] [address] [place] [phone] PCP - General Family Medicine 10/09/22 documented as of this encounter
--- OUTSIDE RECORDS SUMMARY | 2025-10-23 04:30 | EXTERNAL MEDICAL SUMMARY RPT | Encounter Summary ---
Author Organization [facility] Address [address] [place] [address] Care Team Providers Care Call Center Director Name Role Phone Kulwant Babin MD Primary Care Provider + Encounter Details Date Type Department Care Team (Late st Contact Info) Description 04/19/2025 Scanned Document SCANNED ONLY Scanned, Document Social [...] 11/14/2025 2:45 PM PST Follow-Up CARDIOLOGY - [place], [place] [address] [place] [phone] Keyona Mercado NP [address] [place] [phone] documented as of this encounter Visit Diagnoses Not on filedocumented in this encounter Care Teams Call Center Director Relationship Specialty Start Date End Date Kulwant Babin MD [address] [place] [address] [place] [phone] PCP - General Family Medicine 10/09/22 documented as of this encounter
--- OUTSIDE RECORDS SUMMARY | 2025-10-23 04:30 | EXTERNAL MEDICAL SUMMARY RPT | Encounter Summary ---
Author Organization [facility] Address [address] [place] [address] Care Team Providers Care Welding Machine Operator Electron Beam Name Role Phone Kulwant Babin MD Primary Care Provider + Encounter Details Date Type Department Care Team (Late st Contact Info) Description 01/10/2021 Scanned Document SCANNED ONLY Scanned, Document Social [...] 11/14/2025 2:45 PM PST Follow-Up CARDIOLOGY - [place] [address] [place] [phone] Keyona Mercado NP [address] [place] [phone] documented as of this encounter Visit Diagnoses Not on filedocumented in this encounter Care Teams Welding Machine Operator Electron Beam Relationship Specialty Start Date End Date Kulwant Babin MD [address] [place] [address] [place] [phone] PCP - General Family Medicine 10/09/22 documented as of this encounter
--- OUTSIDE RECORDS SUMMARY | 2025-10-23 04:30 | EXTERNAL MEDICAL SUMMARY RPT | Clinical Summary ---
Author Organization [facility] Address [address] [place] [address] Care Team Providers Care Information Security Associate Name Role Phone Pcp, None Selected Primary Care Provider Unavail able Allergies Active Allergy Reactions Criticality Noted Date Comments Atenolol High 02/19/2017 Other reaction(s): lungs fill up with fluid Hydrochlorothiazide High 02/19/2017 Other reaction(s): Hives/Blisters Lisinopril Cough Medium 02/19/2017 Metoprolol Low 02/19/2017 Other reaction(s): hair loss Medications traMADol (ULTRAM) 50 mg tablet 0 7 Active spironolactone (ALDACTONE) 25 mg tablet daily. Active atorvastatin (LIPITOR) 10 mg tablet daily. Active amLODIPine (NORVASC) 10 mg tablet daily. Active albuterol 2.5 mg /3 mL (0.083 %) nebulizer solution inhale 3 milliliter by nebulization route every 4 hours as needed 4 Active dabigatran etexilate (PRADAXA) 75 mg capsule Take 75 mg by mouth 2 (two) times a day. Active tiotropium (SPIRIVA WITH HANDIHALER) [address] 1 capsule into inhaler and inhale once daily. Active azithromycin (ZITHROMAX) 250 mg tablet Take 2 tabs (500 mg) by mouth today, than 1 daily for 4 days. 6 tablet 1 8 Active predniSONE (DELTASONE) 20 mg tablet Take 2 tabs (40mg) daily for 5 days, then take 1 tab (20mg) daily for 5 days 15 tablet 1 8 Active montelukast (SINGULAIR) 10 mg tablet Take 1 tablet by mouth once nightly for breathing. 30 tablet 0 Active fluticasone propion-salmete roL (Advair HFA) 230-21 mcg/actuation inhaler Inhale 2 puffs by mouth 2 times daily for breathing. Rinse mouth after use. 12 g 0 Active Active Problems Problem Noted Date Diagnosed Date Numbness and tingling in right hand 06/26/2020 Arthritis of carpometacarpal (CMC) joint of righ t thumb 06/26/2020 Immunizations Immunization Administration Dates Next Due FLU PF 6+Mos Quad (Fluzone, FluLaval, Fluarix) 1 11/29/2016 FLU PF 6+Mos Trivalent 0.5ML (Fluzone, FluLaval, Fluarix) 09/29/2017 Live Zoster (Zostavax) 08/11/2017 Pneumococcal Polysaccharide PPV23 (Bwiwfvisa23) 06/30/2014 Tdap (Boostrix,Adacel) 06/30/2014 Social History Tobacco Use Types Packs/Day Years Used Date Smoking Tobacco: Every Day Cigarettes Smokeless Tobacco: Never Comments:10 cigarettes;20 pa ck years Comments Unknown Sex and Gender Information Value Date Recorded Sex Assigned at Not on file Legal Sex Female 7:32 PM PDT Gender Identity Not on file Sexual Orientation Not on file Last Filed Vital Signs Vital Sign Reading Time Taken Comments Blood Pressure 140/64 06/26/2020 1:23 PM PDT Pulse 74 12/16/2018 2:21 PM PST Temperature - - Respiratory Rate - - Oxygen Saturation 97% 12/16/2018 2:21 PM PST Inhaled Oxygen Concentration - - Weight 90.9 kg (200 lb 6.4 oz) 06/26/2020 1:23 P M PDT Height 157.5 cm (5' 2") 06/26/2020 1:23 PM PDT Body Mass Index 36.65 06/26/2020 1:23 PM PDT Plan of Treatment Health Maintenance Due Date Last Done Comments Bone Density Scan 1957 Depression Screening (PHQ-2) 1969 Colorectal Cancer Screening (Colonoscopy) 2002 Colorectal Cancer Screening (FOBT) 2002 Colorectal Cancer Screening (Fecal DNA) 2002 Colorectal Cancer Screening Combined 2002 HM Pneumococcal Adult 50+ (2 of 2 - PCV) 06/30/2015 06/30/2014 Fall Risk Screening 2022 COVID-19 Vaccine ( season) 2025 Influenza Vaccine (#1) 2025 8, 09/29/2017, 09/29/2017 DTaP,Tdap,and Td Vaccines (3 - Td or Tdap) 06/26/2028 06/26/2018, 06/30/2014 RSV Patients Over 60 years OR qualifying ( Patients) (1 - 1-dose 75+ series) 2032 HM Pneumococcal Combined Age 0-49 Discontinued 06/30/2014 Varicella Vaccines Discontinued 08/11/2017 Zoster Vaccines Completed 06/30/2018, 03/11/2018, 08/11/2017 HPV Vaccines Aged Out No longer eligi ble based on patient's age to complete this topic Hepatitis A Vaccines Aged Out No long er eligible based on patient's age to complete this topic Hepatitis B Vaccines Aged Out No long er eligible based on patient's age to complete this topic IPV Vaccines Aged Out No longer eligi ble based on patient's age to complete this topic MMR Vaccines Aged Out No longer eligi ble based on patient's age to complete this topic Insurance [facility] [employer] Care Teams Information Security Associate Relationship Specialty Start Date End Date Pcp, None Selected PCP - General 03/03/25
--- OUTSIDE RECORDS SUMMARY | 2025-10-23 04:30 | EXTERNAL MEDICAL SUMMARY RPT | Encounter Summary ---
Author Organization [facility] Address [address] [place] [address] Care Team Providers Care Open Source Developer Name Role Phone Kulwant Babin MD Primary Care Provider + Encounter Details Date Type Department Care Team (Late st Contact Info) Description 08/07/2024 Scanned Document SCANNED ONLY Scanned, Document Social [...] 11/14/2025 2:45 PM PST Follow-Up CARDIOLOGY - [place], [place] [address] [place] [address] [phone] Keyona Mercado NP [address] [place] [address] [phone] documented as of this encounter Visit Diagnoses Not on filedocumented in this encounter Care Teams Open Source Developer Relationship Specialty Start Date End Date Kulwant Babin MD [address] [place] [phone] PCP - General Family Medicine 10/09/22 documented as of this encounter
--- OUTSIDE RECORDS SUMMARY | 2025-10-23 04:30 | EXTERNAL MEDICAL SUMMARY RPT | Encounter Summary ---
Author Organization [facility] Address [address] [place] [address] Care Team Providers Care Mechanical Ordnance Assembler Name Role Phone Kulwant Babin MD Primary [...] 11/14/2025 2:45 PM PST Follow-Up CARDIOLOGY - [place], [place] [address] [place] [address] [phone] Keyona Mercado NP [address] [place] [address] [phone] documented as of this encounter Visit Diagnoses Not on filedocumented in this encounter Care Teams Mechanical Ordnance Assembler Relationship Specialty Start Date End Date Kulwant Babin MD [address] [place] [phone] PCP - General Family Medicine 10/09/22 documented as of this encounter
--- OUTSIDE RECORDS SUMMARY | 2025-10-23 04:30 | EXTERNAL MEDICAL SUMMARY RPT | Encounter Summary ---
Author Organization [facility] Address [address] [place] [address] Care Team Providers Care Fabric Pattern Grader Name Role Phone Federica Ortiz Primary Care Provider [phone] Reason for Referral * Diagnostic/Screening (Routine) Specialty Diagnoses / Procedures Referred By Connor t Referred To Contact Radiology Tete Mills MD [address] [place] [address] Referral ID Status Reason Start Date Expiration Date Visits Re quested Visits Authorized Encounter Details Date Type Department Care Team (Late st Contact Info) Description 10/20/2025 Imaging Exam [facility] EXTERNAL IMAGING [address] [place] [phone] Tete Mills MD [address] [place] [address] Social History Tobacco Use Types Packs/Day Years [...] on file documented as of this encounter Results * CT Thoracic Spine wo Contrast (10/20/2025 12:45 PM PST) Narrative [facility] - 10/20/2025 12:45 PM PST External films for comparison only - No results will be in the chart. us Historical Provider MD [place] [facility] ORDERABLES Final R esult [facility] documented in this encounter Visit Diagnoses Not on filedocumented in this encounter Care Teams Fabric Pattern Grader Relationship Specialty Start Date End Date Federica Ortiz ARNP [address] [place] [phone] PCP - General Family Nurse Practitioner 08/30/16 documented as of this encounter
--- OUTSIDE RECORDS SUMMARY | 2025-10-23 04:30 | EXTERNAL MEDICAL SUMMARY RPT | Encounter Summary ---
Author Organization [facility] Address [facility] [address] Care Team Providers Care Laboratory Technician Name Role Phone Kulwant Babin MD Primary Care Provider + Encounter Details Date Type Department Care Team (Late st Contact Info) Description 08/29/2016 Lab Requisition [place], [place] [address] [place], [place] [address] Kimberly Gruber ARNP [address] [place], [place] [phone] Social History Tobacco Use Types Packs/Day Years [...] 11/14/2025 2:45 PM PST Follow-Up CARDIOLOGY - [address] [phone] [place] [address] [place] [address] [phone] documented as of this encounter Procedures Procedure Name Priority Date/Time Associated Diagnosis Comments *HOLD BODY FLUID, LAB GENERATED ORDER Routine 08/28/2016 12:17 PM PDT *HOLD BODY FLUID, LAB GENERATED ORDER Routine 08/28/2016 12:17 PM PDT PROTEIN,BODY FLUID Routine 08/28/2016 12 :17 PM PDT GLUCOSE,BODY FLUID Routine 08/28/2016 12 :17 PM PDT documented in this encounter Results * LAB USE ONLY HOLD BODY FLUID (08/28/2016 12:17 PM PDT) RAINBOW DRAW Hold for add-ons. Specimen Stored. 08/30/2016 1:53 AM PDT [employer] Comment:Auto resulted. Other 08/28/2016 12:1 7 PM PDT 08/29/2016 11:18 PM PDT Kimberly Gruber CERTIFIED OPHTHALMIC TECHNICIAN BODY FLUIDS AND STOOLS ORD ERABLES Final Result Performing Organization Address [facility] de Phone Number [facility] [employer] [address] [place] [address] * LAB USE ONLY HOLD BODY FLUID (08/28/2016 12:17 PM PDT) RAINBOW DRAW Specimen stored. 08/30/2016 2:03 AM PDT [employer] Other 08/28/2016 12:1 7 PM PDT 08/29/2016 11:18 PM PDT Kimberlyberenice Gruber CERTIFIED OPHTHALMIC TECHNICIAN BODY FLUIDS AND STOOLS ORD ERABLES Final Result Performing Organization Address [facility] Co de Phone Number [facility] [employer] [address] [place] [address] [phone] * Glucose, Body Fluid (08/28/2016 12:17 PM PDT) Glucose, Body Fluid 71 mg/dL 08/29/2016 11:11 PM PDT [facility] Comment: No reference range established. Interpret with other clinical data. Body Fluid 08/28/2016 12:1 7 PM PDT 08/29/2016 10:35 PM PDT Kimberly BENAVIDESP BODY FLUIDS AND STOOLS ORD ERABLES Final Result Performing Organization Address City/[facility]/ZIP Co de Phone Number [employer] [address] [place], [place] [phone] * Protein, Body Fluid (08/28/2016 12:17 PM PDT) Protein, Body Fluid 4.8 g/dL 08/29/2016 11:11 PM PDT [employer] Comment: No reference range established. Interpret with other clinical data. Body Fluid 08/28/2016 12:1 7 PM PDT 08/29/2016 10:35 PM PDT Kimberly Gruber CERTIFIED OPHTHALMIC TECHNICIAN BODY FLUIDS AND STOOLS ORD ERABLES Final Result Performing Organization Address [facility] Co de Phone Number [employer] [address] [place], [place] [phone] documented in this encounter Visit Diagnoses Not on filedocumented in this encounter Care Teams Laboratory Technician Relationship Specialty Start Date End Date Kulwant Babin MD [address] [phone] PCP - General Family Medicine 10/09/22 documented as of this encounter
--- OUTSIDE RECORDS SUMMARY | 2025-10-23 04:30 | EXTERNAL MEDICAL SUMMARY RPT | Encounter Summary ---
Author Organization [facility] Address [address] [place] [address] Care Team Providers Care Sheet Rock Sander Name Role Phone Kulwant Babin MD Primary [...] 11/14/2025 2:45 PM PST Follow-Up CARDIOLOGY - [place], [place] [address] [place] [address] [phone] Keyona Mercado NP [address] [place] [address] [phone] documented as of this encounter Visit Diagnoses Not on filedocumented in this encounter Care Teams Sheet Rock Sander Relationship Specialty Start Date End Date Kulwant Babin MD [address] [place] [phone] PCP - General Family Medicine 10/09/22 documented as of this encounter
--- OUTSIDE RECORDS SUMMARY | 2025-10-23 04:30 | EXTERNAL MEDICAL SUMMARY RPT | Encounter Summary ---
Author Organization [facility] Address [facility] [address] Care Team Providers Care Supervisor Extrusion Name Role Phone Kulwant Babin MD Primary Care Provider + Encounter Details Date Type Department Care Team (Late Contact Info) Description 02/25/2017 Lab Requisition [place], [place] [address] [place] [phone] [place] [address] [place] [address] [phone] Social History Tobacco Use Types Packs/Day Years [...] 11/14/2025 2:45 PM PST Follow-Up CARDIOLOGY - [address] [phone] Keyona Mercado NP [address] [place] [address] [phone] documented as of this encounter Procedures Procedure Name Priority Date/Time Associated Diagnosis Comments *DRUG TEST 8 BROADBAND TECHNICIAN W/CONFIRM, UR, LAB GENERATED ORDER Routine 02/24/2017 3:00 PM PDT *PAIN MANAGEMENT PANEL & OPIOID INTERPRETATION, LAB GENERATED ORDER Routine 02/24/2017 3:00 PM PDT PAIN MANAGEMENT PROFILE 1 WITH CONFIRMATION, WITH D/L ISOMERS, URINE Routine 02/24/2017 3:00 PM PDT QUANTITATIVE OPIOID PANEL, URINE Routine 02/24/2017 3:00 PM PDT documented in this encounter Results * Opioids I Panel Quant, Urine (LC-MS/MS) (02/24/2017 3:00 PM PDT) [facility] Hydrocodone (free), Quant, Urine Negative Threshold is 5 ng/mL 02/28/2017 9:[address] [facility] Hydromorphone (free), Quant, Urine Negative Threshold is 5 ng/mL 02/28/2017 9:[address] [facility] Oxycodone (free), Quant, Urine Negative Threshold is 5 ng/mL 02/28/2017 9:[address] [facility] Oxymorphone (free), Quant, Urine Negative Threshold is 5 ng/mL 02/28/2017 9:[address] [facility] Codeine (free), Quant, Urine Negative Threshold is 5 ng/mL 02/28/2017 9:[address] [facility] Morphine (free), Quant, Urine Negative Threshold is 5 ng/mL 02/28/2017 9:[address] [facility] 6-Monoacetylmorp sanjay, Quant, Urine Negative Threshold is 5 ng/mL 02/28/2017 9:[address] [facility] Meperidine, Quant, Urine Negative Threshold is 5 ng/mL 02/28/2017 9:[address] [facility] Fentanyl, Quant, Urine Negative Threshold is 2 ng/mL 02/28/2017 9:[address] [facility] Norfentanyl, Quant, Urine Negative Threshold is 2 ng/mL 02/28/2017 9:41 AM [facility] Urine 02/24/2017 3:00 PM PDT 02/25/2017 10:41 PM PDT [address] [facility] - 02/28/2017 9:41 AM PDT This test was developed and its performance characteristics determined by [employer]. See Laboratory Developed Tests (LDT) at www.[email or web address]. Federica Ortiz NP URINE ORDERABLES Final Result Performing Organization Address [facility] Co de Phone Number [facility] [address] [place] [address] * Drug Test 8-Panel with Confirmation, Urine (02/24/2017 3:00 PM PDT) Amphetamines Screen Negative Threshold is 300 ng/mL 02/28/2017 9:41 AM PDT [facility] [employer] Barbiturates Test, Urine, w/ Confirmation Negative Threshold is 200 ng/mL 02/28/2017 9:41 AM PDT [facility] [employer] Benzodiazepines Test, Urine, w/ Confirmation Negative Threshold is 200 ng/mL 02/28/2017 9:41 AM PDT [facility] [employer] Cocaine Screen Negative Threshold is 150 ng/mL 02/28/2017 9:41 AM PDT [facility] [employer] Ethanol Screen Negative Threshold is 0.020 g/dL 02/28/2017 9:41 AM PDT [facility] [employer] Marijuana Screen Negative Threshold is 20 ng/mL 02/28/2017 9:41 AM PDT [facility] [employer] Methadone Test, Urine, w/ Confirmation Negative Threshold is 150 ng/mL 02/28/2017 9:[address] [facility] Phencyclidine Test, Urine, w/ Confirmation Negative Threshold is 25 ng/mL 02/28/2017 9:41 AM [facility] [employer] Specimen Validity Test Passed 02/28/2017 9:41 AM PDT [facility] [employer] Urine 02/24/2017 3:00 PM PDT 02/25/2017 10:41 PM PDT Federica Ortiz NP URINE ORDERABLES Final Result Performing Organization Address City/[facility]/ZIP Co de Phone Number [facility] [employer] [address] [place] [address] * Interpretive Comment (02/24/2017 3:00 PM PDT) Tramadol currently prescribed? Yes 02/28/2017 9:41 AM PDT [facility] [employer] Urine 02/24/2017 3:00 PM PDT 02/25/2017 10:41 PM PDT Narrative [facility] - 02/28/2017 9:41 AM PDT This test was developed and its performance characteristics determined by [employer]. See Laboratory Developed Tests (LDT) at www.[email or web address]. us Federica Ortiz PUBLIC HEALTH NUTRITIONIST URINE ORDERABLES Final Result Performing Organization Address City/State/[facility] Co de Phone Number [employer] [address] [place], [place] [phone] documented in this encounter Visit Diagnoses Not on filedocumented in this encounter Care Teams Supervisor Extrusion Relationship Specialty Start Date End Date Kulwant Babin MD [address] [phone] PCP - General Family Medicine 10/09/22 documented as of this encounter
--- OUTSIDE RECORDS SUMMARY | 2025-10-23 04:30 | EXTERNAL MEDICAL SUMMARY RPT | Encounter Summary ---
Author Organization [facility] Address [address] [place] [address] Care Team Providers Care Retort Engineer Name Role Phone Kulwant Babin MD Primary Care Provider + Encounter Details Date Type Department Care Team (Late st Contact Info) Description 06/06/2025 Scanned Document SCANNED ONLY Scanned, Document Social [...] 11/14/2025 2:45 PM PST Follow-Up CARDIOLOGY - [address] [phone] Keyona Mercado ORACLE DATABASE ADMINISTRATOR [address] [place] [address] documented as of this encounter Visit Diagnoses Not on filedocumented in this encounter Care Teams Retort Engineer Relationship Specialty Start Date End Date Kulwant Babin MD [address] [place] [address] [place] [phone] PCP - General Family Medicine 10/09/22 documented as of this encounter
--- OUTSIDE RECORDS SUMMARY | 2025-10-23 04:30 | EXTERNAL MEDICAL SUMMARY RPT | Encounter Summary ---
Author Organization [facility] Address [address] [place] [address] Care Team Providers Care Transport Coordinator Name Role Phone Kulwant Babin MD Primary [...] 11/14/2025 2:45 PM PST Follow-Up CARDIOLOGY - [place] [address] [place] [address] [phone] Keyona Mercado NP [address] [place] [address] [phone] documented as of this encounter Visit Diagnoses Not on filedocumented in this encounter Care Teams Transport Coordinator Relationship Specialty Start Date End Date Kulwant Babin MD [address] [place] [address] [place] [phone] PCP - General Family Medicine 10/09/22 documented as of this encounter
--- OUTSIDE RECORDS SUMMARY | 2025-10-23 04:30 | EXTERNAL MEDICAL SUMMARY RPT | Encounter Summary ---
Author Organization [facility] Address [address] [place] [address] Care Team Providers Care Event Planning Intern Name Role Phone Pcp, None Selected Primary Care Provider Unavail able Reason for Visit * Reason Comments Med Refill Encounter Details Date Type Department Care Team (Late st Contact Info) Description 12/04/2019 Refill [facility] [place] [address] [place] [phone] Ninoska Coon MD Social History Tobacco Use Types Packs/Day Years [...] on file documented as of this encounter Visit Diagnoses Not on filedocumented in this encounter Care Teams Event Planning Intern Relationship Specialty Start Date End Date Pcp, None Selected PCP - General 03/03/25 documented as of this encounter
--- OUTSIDE RECORDS SUMMARY | 2025-10-23 04:30 | EXTERNAL MEDICAL SUMMARY RPT | Encounter Summary ---
Author Organization [facility] Address [address] [place] [address] Care Team Providers Care Waybill Clerk Name Role Phone Kulwant Babin MD Primary Care Provider + Encounter Details Date Type Department Care Team (Late st Contact Info) Description 02/24/2025 Scanned Document SCANNED ONLY Scanned, Document Social [...] 11/14/2025 2:45 PM PST Follow-Up CARDIOLOGY - [place], [place] [address] [place] [address] [phone] Keyona Mercado NP [address] [place] [address] [phone] documented as of this encounter Visit Diagnoses Not on filedocumented in this encounter Care Teams Waybill Clerk Relationship Specialty Start Date End Date Kulwant Babin MD [address] [place] [address] [place] [phone] PCP - General Family Medicine 10/09/22 documented as of this encounter
--- OUTSIDE RECORDS SUMMARY | 2025-10-23 04:30 | EXTERNAL MEDICAL SUMMARY RPT | Encounter Summary ---
Author Organization [facility] Address [address] [place] [address] Care Team Providers Care Bitumen Plant Operator Name Role Phone Kulwant Babin MD Primary [...] 11/14/2025 2:45 PM PST Follow-Up CARDIOLOGY [place] [address] [place] [address] [phone] Keyona Mercado NP [address] [place] [address] [phone] documented as of this encounter Visit Diagnoses Not on filedocumented in this encounter Care Teams Bitumen Plant Operator Relationship Specialty Start Date End Date Kulwant Babin MD [address] [place] [address] [place] [phone] PCP - General Family Medicine 10/09/22 documented as of this encounter
--- OUTSIDE RECORDS SUMMARY | 2025-10-23 04:30 | EXTERNAL MEDICAL SUMMARY RPT | Encounter Summary ---
Author Organization [facility] Address [address] [place] [address] Care Team Providers Care Watch Technician Name Role Phone Kulwant Babin MD [...] 11/14/2025 2:45 PM PST Follow-Up CARDIOLOGY - [place] [address] [place] [address] [phone] Keyona Mercado NP [address] [place] [address] [phone] documented as of this encounter Visit Diagnoses Not on filedocumented in this encounter Care Teams Watch Technician Relationship Specialty Start Date End Date Kulwant Babin MD [address] [place] [address] [place] [phone] PCP - General Family Medicine 10/09/22 documented as of this encounter
--- OUTSIDE RECORDS SUMMARY | 2025-10-23 04:30 | EXTERNAL MEDICAL SUMMARY RPT | Encounter Summary ---
Author Organization [facility] Address [address] [place] [address] Care Team Providers Care Electric Arc Welder Name Role Phone Kulwant Babin MD Primary [...] 11/14/2025 2:45 PM PST Follow-Up CARDIOLOGY - [place] [address] [place] [address] [phone] Keyona Mercado NP [address] [place] [address] [phone] documented as of this encounter Visit Diagnoses Not on filedocumented in this encounter Care Teams Electric Arc Welder Relationship Specialty Start Date End Date Kulwant Babin MD [address] [place] [phone] PCP - General Family Medicine 10/09/22 documented as of this encounter
--- OUTSIDE RECORDS SUMMARY | 2025-10-23 04:30 | EXTERNAL MEDICAL SUMMARY RPT | Encounter Summary ---
Author Organization [facility] Address [address] [place] [address] Care Team Providers Care Artist'S Model Name Role Phone Kulwant Babin MD Primary Care Provider + Encounter Details Date Type Department Care Team (Late st Contact Info) Description 07/22/2024 Scanned Document SCANNED ONLY Scanned, Document Social [...] 11/14/2025 2:45 PM PST Follow-Up CARDIOLOGY - [place], [place] [address] [place] [address] [phone] Keyona Mercado NP [address] [place] [address] [phone] documented as of this encounter Visit Diagnoses Not on filedocumented in this encounter Care Teams Artist'S Model Relationship Specialty Start Date End Date Kulwant Babin MD [address] [place] [address] [place] [phone] PCP - General Family Medicine 10/09/22 documented as of this encounter
--- OUTSIDE RECORDS SUMMARY | 2025-10-23 04:30 | EXTERNAL MEDICAL SUMMARY RPT | Encounter Summary ---
Author Organization [facility] Address [address] [place] [address] Care Team Providers Care Retail Management Trainee Name Role Phone Kulwant Babin MD Primary Care Provider + Encounter Details Date Type Department Care Team (Late st Contact Info) Description 10/08/2022 Scanned Document SCANNED ONLY Scanned, Document Social [...] 11/14/2025 2:45 PM PST Follow-Up CARDIOLOGY - [place], [place] [address] [place] [address] [phone] Keyona Mercado NP [address] [place] [address] [phone] documented as of this encounter Visit Diagnoses Not on filedocumented in this encounter Care Teams Retail Management Trainee Relationship Specialty Start Date End Date Kulwant Babin MD [address] [place] [phone] PCP - General Family Medicine 10/09/22 documented as of this encounter
--- OUTSIDE RECORDS SUMMARY | 2025-10-23 04:30 | EXTERNAL MEDICAL SUMMARY RPT | Encounter Summary ---
Author Organization [facility] Address [facility] [address] Care Team Providers Care Credit Administration Officer Name Role Phone Kulwant Babin MD Primary Care Provider + Encounter Details Date Type Department Care Team (Late st Contact Info) Description 08/29/2016 Lab Requisition [place], [place] [address] [place], [place] [phone] Kimberly Gruber ARNP [address] [place], [place] [phone] Social History Tobacco Use Types Packs/Day Years [...] 11/14/2025 2:45 PM PST Follow-Up CARDIOLOGY - [address] [phone] [place] [address] [place] [address] [phone] documented as of this encounter Procedures Procedure Name Priority Date/Time Associated Diagnosis Comments ANAEROBIC BACTERIAL CULTURE (STJO) Routine 08/29/2016 12:17 PM PDT documented in this encounter Results * Anaerobic Bacterial Culture (08/29/2016 12:17 PM PDT) Culture No anaerobes isolated MATHEUS INTERPRETATION 09/03/2016 11:06 AM PDT [employer] Other OTHER / Unknown 08/29/2016 1 2:17 PM PDT 08/29/2016 10:35 PM PDT Kimberly Lisa Gruber CERTIFIED OPHTHALMIC TECHNOLOGIST MICROBIOLOGY - GENERAL ORD ERABLES Final Result Performing Organization Address City/State/[facility] Co de Phone Number [employer] [address] [place] [address] documented in this encounter Visit Diagnoses Not on filedocumented in this encounter Care Teams Credit Administration Officer Relationship Specialty Start Date End Date Kulwant Babin MD [address] [place] [phone] PCP - General Family Medicine 10/09/22 documented as of this encounter
--- OUTSIDE RECORDS SUMMARY | 2025-10-23 04:30 | EXTERNAL MEDICAL SUMMARY RPT | Encounter Summary ---
Author Organization [facility] Address [address] [place] [address] Care Team Providers Care Business Intelligence Architect Name Role Phone Pcp, None Selected Primary Care Provider Unavail able Reason for Visit * Reason Comments Med Refill Encounter Details Date Type Department Care Team ([facility] st Contact Info) Description 04/14/2020 Refill [facility] Pulmonology [place] [address] [place] [phone] Celestine Ching MD [address] [place] [address] [phone] Social History Tobacco Use Types Packs/Day Years [...] on filedocumented in this encounter Care Teams Business Intelligence Architect Relationship Specialty Start Date End Date Pcp, None Selected PCP - General 03/03/25 documented as of this encounter
--- OUTSIDE RECORDS SUMMARY | 2025-10-23 04:30 | EXTERNAL MEDICAL SUMMARY RPT | Encounter Summary ---
Author Organization [facility] Address [address] [place] [address] 15198 Care Team Providers Care Cleat Thrower Name Role Phone Kulwant Babin MD Primary [...] 11/14/2025 2:45 PM PST Follow-Up CARDIOLOGY - [place], [place] [address] [place] [address] [phone] Keyona Mercado NP [address] [place] [address] [phone] documented as of this encounter Visit Diagnoses Not on filedocumented in this encounter Care Teams Cleat Thrower Relationship Specialty Start Date End Date Kulwant Babin MD [address] [place] [phone] PCP - General Family Medicine 10/09/22 documented as of this encounter
--- OUTSIDE RECORDS SUMMARY | 2025-10-23 04:30 | EXTERNAL MEDICAL SUMMARY RPT | Encounter Summary ---
Author Organization [facility] Address [address] [place] [address]47 Care Team Providers Care Endocrinologist Name Role Phone Kulwant Babin MD Primary Care Provider + Encounter Details Date Type Department Care Team (Late st Contact Info) Description 08/02/2025 Scanned Document SCANNED ONLY Scanned, Document Social [...] 11/14/2025 2:45 PM PST Follow-Up CARDIOLOGY - [address] [phone] Keyona Mercado OFFSET PRESS OPERATOR [address] [place] [phone] documented as of this encounter Visit Diagnoses Not on filedocumented in this encounter Care Teams Endocrinologist Relationship Specialty Start Date End Date Kulwant Babin MD [address] [place] [phone] PCP - General Family Medicine 10/09/22 documented as of this encounter
--- OUTSIDE RECORDS SUMMARY | 2025-10-23 04:30 | EXTERNAL MEDICAL SUMMARY RPT | Encounter Summary ---
Author Organization [facility] Address [address] [place] [address] Care Team Providers Care Motor Analyst Name Role Phone Kulwant Babin MD Primary [...] 11/14/2025 2:45 PM PST Follow-Up CARDIOLOGY - [place], [place] [address] [place] [address] [phone] Keyona Mercado NP [address] [place] [address] [phone] documented as of this encounter Visit Diagnoses Not on filedocumented in this encounter Care Teams Motor Analyst Relationship Specialty Start Date End Date Kulwant Babin MD [address] [place] [address] [place] [phone] PCP - General Family Medicine 10/09/22 documented as of this encounter
--- OUTSIDE RECORDS SUMMARY | 2025-10-23 04:30 | EXTERNAL MEDICAL SUMMARY RPT | Encounter Summary ---
Author Organization [facility] Address [address] [place] [address] Care Team Providers Care Employment Security Officer Name Role Phone Kulwant Babin MD Primary Care Provider + Encounter Details Date Type Department Care Team (Late st Contact Info) Description 10/07/2025 Scanned Document SCANNED ONLY Scanned, Document Social [...] 11/14/2025 2:45 PM PST Follow-Up CARDIOLOGY - [address] [phone] Keyona Mercado TRANSFORMATION ANALYST [address] [place] [address] documented as of this encounter Visit Diagnoses Not on filedocumented in this encounter Care Teams Employment Security Officer Relationship Specialty Start Date End Date Kulwant Babin MD [address] [place] [phone] PCP - General Family Medicine 10/09/22 documented as of this encounter
--- OUTSIDE RECORDS SUMMARY | 2025-10-23 04:31 | EXTERNAL MEDICAL SUMMARY RPT | Encounter Summary ---
Author Organization [facility] Address [address] [place] [address] 17694 Care Team Providers Care Technician Support Engineer Name Role Phone Kulwant Babin MD [...] 11/14/2025 2:45 PM PST Follow-Up CARDIOLOGY - [place], [place] [address] [place] [address] [phone] Keyona Mercado NP [address] [place] [address] [phone] documented as of this encounter Visit Diagnoses Not on filedocumented in this encounter Care Teams Technician Support Engineer Relationship Specialty Start Date End Date Kulwant Babin MD [address] [place] [phone] PCP - General Family Medicine 10/09/22 documented as of this encounter
--- OUTSIDE RECORDS SUMMARY | 2025-10-23 04:31 | EXTERNAL MEDICAL SUMMARY RPT | Encounter Summary ---
Author Organization [facility] Address [facility] [address] Care Team Providers Care Surgical Corsetier Name Role Phone Kulwant Babin MD Primary Care Provider + Encounter Details Date Type Department Care Team (Late Contact Info) Description 06/18/2016 Lab Requisition [place], [place] [address] [place] [phone] [place] [address] [place] [phone] Social History Tobacco Use Types Packs/Day Years [...] 11/14/2025 2:45 PM PST Follow-Up CARDIOLOGY - [address] [phone] Keyona Mercado NP [address] [place] [address] documented as of this encounter Procedures Procedure Name Priority Date/Time Associated Diagnosis Comments *PAIN MANAGEMENT PROFILE (MS), LAB GENERATED ORDER Routine 06/17/2016 1:45 PM PDT PAIN MANAGEMENT PROFILE 1 WITH CONFIRMATION, WITH D/L ISOMERS, URINE Routine 06/17/2016 1:45 PM PDT documented in this encounter Results * Pain Management Profile (06/17/2016 1:45 PM PDT) Propoxyphene, Screen negative 300 ng/mL 06/20/2016 4:27 PM PDT [facility] Interpretive Comment See comment below 06/20/2016 4:27 PM PDT [facility] Comment:Prescribed Drugs: Tr amadol Hydrocodone (free) Quant, Urine negative 5 ng/mL 06/20/2016 4:27 PM PDT [facility] Hydromorphone (free) Quant, Urine negative 5 ng/mL 06/20/2016 4:27 PM PDT [facility] Oxycodone (free) Quant, Urine negative 5 ng/mL 06/20/2016 4:27 PM PDT [facility] Oxymorphone (free), Quantitative, Urine negative 5 ng/mL 06/20/2016 4:27 PM PDT [facility] Codeine (free) Quant, Urine negative 5 ng/mL 06/20/2016 4:27 PM PDT [facility] Morphine (free) Quant, Urine negative 5 ng/mL 06/20/2016 4:27 PM PDT [facility] 6-Monoacetylmorphin e Quant, Urine negative 5 ng/mL 06/20/2016 4:27 PM PDT [facility] Meperidine Quant, Urine negative 5 ng/mL 06/20/2016 4:27 PM PDT [facility] Fentanyl Quant, Urine negative 2 ng/mL 06/20/2016 4:27 PM PDT [facility] Norfentanyl Quant, Urine negative 2 ng/mL 06/20/2016 4:27 PM PDT [facility] Specimen Validity Test PASSED 06/20/2016 4:27 PM PDT [facility] Comment: Specimen Temperature Within Acceptable Range Amphetamines Screen negative 300 ng/mL 06/20/2016 4:27 PM PDT [facility] Barbiturates Test, Urine, w/ Confirmation negative 200 ng/mL 06/20/2016 4:27 PM PDT [facility] Benzodiazepines Test, Urine, w/ Confirmation negative 200 ng/mL 06/20/2016 4:27 PM PDT [facility] Cocaine Test, Urine, w/ Confirmation negative 150 ng/mL 06/20/2016 4:27 PM PDT [facility] Phencyclidine Test, Urine, w/ Confirmation negative 25 ng/mL 06/20/2016 4:27 PM PDT [facility] Marijuana Screen negative 20 ng/mL 06/20/20 16 4:27 PM PDT [facility] Methadone Test, Urine, w/ Confirmation negative 150 ng/mL 06/20/2016 4:27 PM PDT [facility] Ethanol Test, Urine, w/ Confirmation negative 0.02 g/dL 06/20/2016 4:27 PM PDT [facility] Urine Collection / Unknown 06/17/2016 1:45 PM PDT 06/18/2016 10:45 PM PDT Narrative [facility] - 06/20/2016 4:27 PM PDT Copy to Provider(s): us Federica Ortiz REGIONAL FACILITIES MANAGER URINE ORDERABLES Final Result [facility] [address] [place], [place] [id number] documented in this encounter Visit Diagnoses Not on filedocumented in this encounter Care Teams Surgical Corsetier Relationship Specialty Start Date End Date Kulwant Babin MD [address] [place] [phone] PCP - General Family Medicine 10/09/22 documented as of this encounter
--- OUTSIDE RECORDS SUMMARY | 2025-10-23 04:31 | EXTERNAL MEDICAL SUMMARY RPT | Encounter Summary ---
Author Organization [facility] Address [address] [place] [address] Care Team Providers Care Master Black Belt Name Role Phone Kulwant Babin MD Primary Care Provider + Encounter Details Date Type Department Care Team (Late st Contact Info) Description 12/28/2024 Scanned Document SCANNED ONLY Scanned, Document Social [...] 11/14/2025 2:45 PM PST Follow-Up CARDIOLOGY [place] [address] [place] [address] [phone] Keyona Mercado NP [address] [place] [address] [phone] documented as of this encounter Visit Diagnoses Not on filedocumented in this encounter Care Teams Master Black Belt Relationship Specialty Start Date End Date Kulwant Babin MD [address] [address] [place] [phone] PCP - General Family Medicine 10/09/22 documented as of this encounter
--- OUTSIDE RECORDS SUMMARY | 2025-10-23 04:31 | EXTERNAL MEDICAL SUMMARY RPT | Encounter Summary ---
Author Organization [facility] Address [address] [place] [address] Care Team Providers Care Military Professional Name Role Phone Kulwant Babin MD Primary Care Provider + Encounter Details Date Type Department Care Team (Late st Contact Info) Description 12/29/2024 Scanned Document SCANNED ONLY Scanned, Document Social [...] 11/14/2025 2:45 PM PST Follow-Up C[place]IOLOGY [place] [address] [place] [phone] Keyona Mercado NP [address] [place] [address] [phone] documented as of this encounter Visit Diagnoses Not on filedocumented in this encounter Care Teams Military Professional Relationship Specialty Start Date End Date Kulwant Babin MD [address] [place] [address] [place] [phone] PCP - General Family Medicine 10/09/22 documented as of this encounter
--- OUTSIDE RECORDS SUMMARY | 2025-10-23 04:31 | EXTERNAL MEDICAL SUMMARY RPT | Encounter Summary ---
Author Organization [facility] Address [address] [place] [address] Care Team Providers Care Shoe Ironer Name Role Phone Kulwant Babin MD Primary [...] 11/14/2025 2:45 PM PST Follow-Up CARDIOLOGY - [place] [address] [place] [address] [phone] Keyona Mercado NP [address] [place] [address] [phone] documented as of this encounter Visit Diagnoses Not on filedocumented in this encounter Care Teams Shoe Ironer Relationship Specialty Start Date End Date Kulwant Babin MD [address] [place] [address] [place] [phone] PCP - General Family Medicine 10/09/22 documented as of this encounter
--- OUTSIDE RECORDS SUMMARY | 2025-10-23 04:31 | EXTERNAL MEDICAL SUMMARY RPT | Encounter Summary ---
Author Organization [facility] Address [facility] [address] Care Team Providers Care Metal Burrer Name Role Phone Kulwant Babin MD Primary Care Provider + Encounter Details Date Type Department Care Team (Late Contact Info) Description 08/29/2016 Lab Requisition [place], [place] [address] [place], [place] [phone] Kimberly Gruber ARNP [address] [place], [place] [phone] Social History Tobacco Use Types Packs/Day Years [...] 11/14/2025 2:45 PM PST Follow-Up CARDIOLOGY - [address] [phone] [place] [address] [place] [address] [phone] documented as of this encounter Procedures Procedure Name Priority Date/Time Associated Diagnosis Comments LD,BODY FLUID Routine 08/28/2016 12:17 PM PDT documented in this encounter Results * LD, Body Fluid (08/28/2016 12:17 PM PDT) Lactate Dehydrogenase, Body Fluid 1,038 U/L 08/29/2016 11:16 PM PDT [facility] Comment: No reference range established. Interpret with other clinical data. Body Fluid 08/28/2016 12:1 7 PM PDT 08/29/2016 10:35 PM PDT us Kimberly Gruber MANAGER TELEMETRY BODY FLUIDS AND STOOLS ORD ERABLES Final Result [facility] [address] [place] [address] documented in this encounter Visit Diagnoses Not on filedocumented in this encounter Care Teams Metal Burrer Relationship Specialty Start Date End Date Kulwant Babin MD [address] [place] [phone] PCP - General Family Medicine 10/09/22 documented as of this encounter
--- OUTSIDE RECORDS SUMMARY | 2025-10-23 04:31 | EXTERNAL MEDICAL SUMMARY RPT | Encounter Summary ---
Author Organization [facility] Address [address] [place] [address]334 Care Team Providers Care Fingernail Sculpturer Name Role Phone Kulwant Babin MD Primary [...] 11/14/2025 2:45 PM PST Follow-Up CARDIOLOGY [place] [address] [place] [address] [phone] Keyona Mercado NP [address] [place] [address] [phone] documented as of this encounter Visit Diagnoses Not on filedocumented in this encounter Care Teams Fingernail Sculpturer Relationship Specialty Start Date End Date Kulwant Babin MD [address] [place] [phone] PCP - General Family Medicine 10/09/22 documented as of this encounter
--- OUTSIDE RECORDS SUMMARY | 2025-10-23 04:31 | EXTERNAL MEDICAL SUMMARY RPT | Encounter Summary ---
Author Organization [facility] Address [address] [place] [address] Care Team Providers Care Machine Sole Leveler Name Role Phone Kulwant Babin MD Primary [...] 11/14/2025 2:45 PM PST Follow-Up CARDIOLOGY - [place], [place] [address] [place] [address] [phone] Keyona Mercado NP [address] [place] [address] [phone] documented as of this encounter Visit Diagnoses Not on filedocumented in this encounter Care Teams Machine Sole Leveler Relationship Specialty Start Date End Date Kulwant Babin MD [address] [place] [phone] PCP - General Family Medicine 10/09/22 documented as of this encounter
--- OUTSIDE RECORDS SUMMARY | 2025-10-23 04:31 | EXTERNAL MEDICAL SUMMARY RPT | Encounter Summary ---
Author Organization [facility] Address [address] [place] [address] Care Team Providers Care Protective Signal Superintendent Name Role Phone Kulwant Babin MD Primary [...] 11/14/2025 2:45 PM PST Follow-Up CARDIOLOGY - [place] [address] [place] [address] [phone] Keyona Mercado NP [address] [place] [address] [phone] documented as of this encounter Visit Diagnoses Not on filedocumented in this encounter Care Teams Protective Signal Superintendent Relationship Specialty Start Date End Date Kulwant Babin MD [address] [place] [address] [place] [phone] PCP - General Family Medicine 10/09/22 documented as of this encounter
--- OUTSIDE RECORDS SUMMARY | 2025-10-23 04:31 | EXTERNAL MEDICAL SUMMARY RPT | Encounter Summary ---
Author Organization [facility] Address [address] [place] [address]19 Care Team Providers Care Calculating Machine Operator Name Role Phone Kulwant Babin MD [...] 11/14/2025 2:45 PM PST Follow-Up CARDIOLOGY - [place] [address] [place] [address] [phone] Keyona Mercado NP [address] [place] [address] [phone] documented as of this encounter Visit Diagnoses Not on filedocumented in this encounter Care Teams Calculating Machine Operator Relationship Specialty Start Date End Date Kulwant Babin MD [address] [place] [address] [place] [phone] PCP - General Family Medicine 10/09/22 documented as of this encounter
--- OUTSIDE RECORDS SUMMARY | 2025-10-23 04:31 | EXTERNAL MEDICAL SUMMARY RPT | Encounter Summary ---
Author Organization formerly [facility] Address [facility] [address] Care Team Providers Care Texture Artist Name Role Phone Kulwant Babin MD Primary Care Provider + Encounter Details Date Type Department Care Team (Late Contact Info) Description 02/25/2017 Lab Requisition [place], [place] [address] [place], [place] [phone] [place] [address] [place] [phone] Social History Tobacco Use Types Packs/Day [...] 11/14/2025 2:45 PM PST Follow-Up CARDIOLOGY - [address] [phone] Keyona Mercado NP [address] [place] [address] [phone] documented as of this encounter Procedures Procedure Name Priority Date/Time Associated Diagnosis Comments DRUG MONITORING, TRAMADOL, QUANTITATIVE, URINE Routine 02/24/2017 3:00 PM PDT documented in this encounter Results * Tramadol & Metabolite, Quant, Urine (LC-MS/MS) (02/24/2017 3:00 PM PDT) Tramadol, Quant, Urine 20,824 Threshold: 50 ng/mL 02/28/2017 9:01 AM PDT [id number] amadol, Quant, Urine 11,059 Threshold: 50 ng/mL 02/28/2017 9:01 AM PDT [employer] Urine 02/24/2017 3:00 PM PDT 02/25/2017 10:41 PM PDT Narrative [facility] - 02/28/2017 9:01 AM PDT This test was developed and its performance characteristics determined by [employer]. See Laboratory Developed Tests (LDT) at www.[employer].org. Federica Ortiz NP URINE ORDERABLES Final Result [facility] [address] [place], [place] [phone] documented in this encounter Visit Diagnoses Not on filedocumented in this encounter Care Teams Texture Artist Relationship Specialty Start Date End Date Kulwant Babin MD [address] [phone] PCP - General Family Medicine 10/09/22 documented as of this encounter
--- OUTSIDE RECORDS SUMMARY | 2025-10-23 04:31 | EXTERNAL MEDICAL SUMMARY RPT | Encounter Summary ---
Author Organization [facility] Address [address] [place] [address] Care Team Providers Care Relay Shop Supervisor Name Role Phone Kulwant Babin MD Primary [...] 11/14/2025 2:45 PM PST Follow-Up CARDIOLOGY - [place] [address] [place] [address] [phone] Keyona Mercado NP [address] [place] [address] [phone] documented as of this encounter Visit Diagnoses Not on filedocumented in this encounter Care Teams Relay Shop Supervisor Relationship Specialty Start Date End Date Kulwant Babin MD [address] [place] [address] [place] [phone] PCP - General Family Medicine 10/09/22 documented as of this encounter
--- OUTSIDE RECORDS SUMMARY | 2025-10-23 04:31 | EXTERNAL MEDICAL SUMMARY RPT | Encounter Summary ---
Author Organization [facility] Address [address] [place] [address] Care Team Providers Care Application Helper Name Role Phone Kulwant Babin MD Primary [...] 11/14/2025 2:45 PM PST Follow-Up CARDIOLOGY - [place], [place] [address] [place] [address] [phone] Keyona Mercado NP [address] [place] [address] [phone] documented as of this encounter Visit Diagnoses Not on filedocumented in this encounter Care Teams Application Helper Relationship Specialty Start Date End Date Kulwant Babin MD [address] [place] [phone] PCP - General Family Medicine 10/09/22 documented as of this encounter
--- OUTSIDE RECORDS SUMMARY | 2025-10-23 04:31 | EXTERNAL MEDICAL SUMMARY RPT | Encounter Summary ---
Author Organization [facility] Address [address] [place] [address] Care Team Providers Care Insurance Verification Specialist Name Role Phone Kulwatn Babin MD Primary Care Provider + Encounter [...] 11/14/2025 2:45 PM PST Follow-Up CARDIOLOGY - [place] [address] [place] [address] [phone] Keyona Mercado NP [address] [place] [address] [phone] documented as of this encounter Visit Diagnoses Not on filedocumented in this encounter Care Teams Insurance Verification Specialist Relationship Specialty Start Date End Date Kulwant Babin MD [address] [place] [address] [place] [phone] PCP - General Family Medicine 10/09/22 documented as of this encounter
--- OUTSIDE RECORDS SUMMARY | 2025-10-23 04:31 | EXTERNAL MEDICAL SUMMARY RPT | Encounter Summary ---
Author Organization [facility] Address [address] [place] [address] Care Team Providers Care Charge Attendant Name Role Phone Kulwant Babin MD Primary [...] 11/14/2025 2:45 PM PST Follow-Up CARDIOLOGY - [place], [place] [address] [place] [address] [phone] Keyona Mercado NP [address] [place] [address] [phone] documented as of this encounter Visit Diagnoses Not on filedocumented in this encounter Care Teams Charge Attendant Relationship Specialty Start Date End Date Kulwant Babin MD [address] [place] [address] [place] [phone] PCP - General Family Medicine 10/09/22 documented as of this encounter
--- OUTSIDE RECORDS SUMMARY | 2025-10-23 04:31 | EXTERNAL MEDICAL SUMMARY RPT | Encounter Summary ---
Author Organization [facility] Address [address] [place] [address] Care Team Providers Care Solvent Mixer Name Role Phone Kulwant Babin MD Primary [...] 11/14/2025 2:45 PM PST Follow-Up CARDIOLOGY - [place] [address] [place] [address] [phone] Keyona Mercado NP [address] [place] [address] [phone] documented as of this encounter Visit Diagnoses Not on filedocumented in this encounter Care Teams Solvent Mixer Relationship Specialty Start Date End Date Kulwant Babin MD [address] [place] [address] [place] [phone] PCP - General Family Medicine 10/09/22 documented as of this encounter
--- OUTSIDE RECORDS SUMMARY | 2025-10-23 04:31 | EXTERNAL MEDICAL SUMMARY RPT | Encounter Summary ---
Author Organization [facility] Address [address] [place] [address] Care Team Providers Care Sand Technologist Name Role Phone Kulwant Babin MD Primary [...] 11/14/2025 2:45 PM PST Follow-Up CARDIOLOGY - [place] [address] [place] [address] [phone] Keyona Mercado NP [address] [place] [address] [phone] documented as of this encounter Visit Diagnoses Not on filedocumented in this encounter Care Teams Sand Technologist Relationship Specialty Start Date End Date Kulwant Babin MD [address] [place] [address] [place] [phone] PCP - General Family Medicine 10/09/22 documented as of this encounter
--- OUTSIDE RECORDS SUMMARY | 2025-10-23 04:31 | EXTERNAL MEDICAL SUMMARY RPT | Encounter Summary ---
Author Organization [facility] Address [address] [place] [address] Care Team Providers Care Fire Inspector Name Role Phone Kulwant Babin MD Primary [...] 11/14/2025 2:45 PM PST Follow-Up CARDIOLOGY - [place] [address] [place] [address] [phone] Keyona Mercado NP [address] [place] [address] [phone] documented as of this encounter Visit Diagnoses Not on filedocumented in this encounter Care Teams Fire Inspector Relationship Specialty Start Date End Date Kulwant Babin MD [address] [place] [address] [place] [phone] PCP - General Family Medicine 10/09/22 documented as of this encounter
--- OUTSIDE RECORDS SUMMARY | 2025-10-23 04:31 | EXTERNAL MEDICAL SUMMARY RPT | Encounter Summary ---
Author Organization Address [address] [place] [address] Care Team Providers Care Instrumentation Tech Name Role Phone Kulwant Babin MD Primary [...] 11/14/2025 2:45 PM PST Follow-Up CARDIOLOGY [place] [address] [place] [address] [phone] Keyona Mercado NP [address] [place] [address] [phone] documented as of this encounter Visit Diagnoses Not on filedocumented in this encounter Care Teams Instrumentation Tech Relationship Specialty Start Date End Date Kulwant Babin MD [address] [place] [address] [place] [phone] PCP - General Family Medicine 10/09/22 documented as of this encounter
--- OUTSIDE RECORDS SUMMARY | 2025-10-23 04:31 | EXTERNAL MEDICAL SUMMARY RPT | Encounter Summary ---
Author Organization [facility] Address [address] [place] [address] Care Team Providers Care Technical Support Technician Name Role Phone Kulwant Babin MD [...] 11/14/2025 2:45 PM PST Follow-[place], [place] [address] [place] [phone] Keyona Mercado NP [address] [place] [address] [phone] documented as of this encounter Visit Diagnoses Not on filedocumented in this encounter Care Teams Technical Support Technician Relationship Specialty Start Date End Date Kulwant Babin MD [address] [place] [phone] PCP - General Family Medicine 10/09/22 documented as of this encounter
--- OUTSIDE RECORDS SUMMARY | 2025-10-23 04:31 | EXTERNAL MEDICAL SUMMARY RPT | Encounter Summary ---
Author Organization [facility] Address [address] [place] [address] Care Team Providers Care Housekeeping Aide Name Role Phone Kulwant Babin MD Primary [...] 11/14/2025 2:45 PM PST Follow-Up C[place] [address] [place] [address] [phone] Keyona Mercado NP [address] [place] [address] [phone] documented as of this encounter Visit Diagnoses Not on filedocumented in this encounter Care Teams Housekeeping Aide Relationship Specialty Start Date End Date Kulwant Babin MD [address] [place] [address] [place] [phone] PCP - General Family Medicine 10/09/22 documented as of this encounter
--- OUTSIDE RECORDS SUMMARY | 2025-10-23 04:31 | EXTERNAL MEDICAL SUMMARY RPT | Encounter Summary ---
Author Organization [facility] Address [address] [place] [address] Care Team Providers Care Saw Offbearer Name Role Phone Kulwant Babin MD Primary [...] 11/14/2025 2:45 PM PST Follow-[place] [address] [place] [address] [phone] Keyona Mercado NP [address] [place] [address] [phone] documented as of this encounter Visit Diagnoses Not on filedocumented in this encounter Care Teams Saw Offbearer Relationship Specialty Start Date End Date Kulwant Babin MD [address] [place] [address] [place] [phone] PCP - General Family Medicine 10/09/22 documented as of this encounter
--- OUTSIDE RECORDS SUMMARY | 2025-10-23 04:31 | EXTERNAL MEDICAL SUMMARY RPT | Encounter Summary ---
Author Organization [facility] Address [address] [place] [address] Care Team Providers Care Pump Room Operator Name Role Phone Kulwant Babin MD [...] 11/14/2025 2:45 PM PST Follow-Up CARDIOLOGY [place] [address] [place] [address] [phone] Keyona Mercado NP [address] [place] [address] [phone] documented as of this encounter Visit Diagnoses Not on filedocumented in this encounter Care Teams Pump Room Operator Relationship Specialty Start Date End Date Kulwant Babin MD [address] [place] [address] [place] [phone] PCP - General Family Medicine 10/09/22 documented as of this encounter
--- OUTSIDE RECORDS SUMMARY | 2025-10-23 04:31 | EXTERNAL MEDICAL SUMMARY RPT | Encounter Summary ---
Author Organization [facility] Address [address] [place] [address] Care Team Providers Care Food Service Worker Name Role Phone Kulwant Babin MD Primary [...] 11/14/2025 2:45 PM PST Follow-Up CARDIOLOGY [place] [address] [place] [address] [phone] Keyona Mercado NP [address] [place] [address] [phone] documented as of this encounter Visit Diagnoses Not on filedocumented in this encounter Care Teams Food Service Worker Relationship Specialty Start Date End Date Kulwant Babin MD [address] [place] [address] [place] [phone] PCP - General Family Medicine 10/09/22 documented as of this encounter
--- OUTSIDE RECORDS SUMMARY | 2025-10-23 04:31 | EXTERNAL MEDICAL SUMMARY RPT | Encounter Summary ---
Author Organization [facility] Address [address] [place] [address] Care Team Providers Care Build Technician Name Role Phone Kulwant Babin MD [...] 11/14/2025 2:45 PM PST Follow-Up CARDIOLOGY [place] [address] [place] [address] [phone] Keyona Mercado NP [address] [place] [address] [phone] documented as of this encounter Visit Diagnoses Not on filedocumented in this encounter Care Teams Build Technician Relationship Specialty Start Date End Date Kulwant Babin MD [address] [place] [address] [place] [phone] PCP - General Family Medicine 10/09/22 documented as of this encounter
--- OUTSIDE RECORDS SUMMARY | 2025-10-23 04:41 | EXTERNAL MEDICAL SUMMARY RPT | Encounter Summary ---
Author Organization [facility] Address [address] [place] [address] Care Team Providers Care Loom Winder Tender Name Role Phone AngelFederica CLAUDIA Primary Care Provider [phone] Encounter Details Date Type Department Care Team (Late st Contact Info) Description 10/20/2025 1:00 PM PST Imaging Exam [facility] EXTERNAL IM[facility]ING [address] [place] [phone] Provider, Tete, [address] [place] [address]. [place] [address] Arrived Social History Tobacco Use Types Packs/Day [...] Name Priority Date/Time Associated Diagnosis Comments CT CHEST W CONTRAST Routine 10/20/2025 1 2:46 PM PST documented in this encounter Results * CT Chest w Contrast (10/20/2025 12:46 PM PST) Narrative [facility] - 10/20/2025 12:46 PM PST External films for comparison only - No results will be in the chart. Historical Provider MD [facility] ORDERABLES Final R esult [facility] documented in this encounter Visit Diagnoses Not on filedocumented in this encounter Care Teams Loom Winder Tender Relationship Specialty Start Date End Date Federica Ortiz ARNP [address] [place] [place] [phone] PCP - General Family Nurse Practitioner 08/30/16 documented as of this encounter
--- OUTSIDE RECORDS SUMMARY | 2025-10-23 04:41 | EXTERNAL MEDICAL SUMMARY RPT | Encounter Summary ---
Author Organization [facility] Address [address] [place] [address] Care Team Providers Care Card Puncher Name Role Phone Federica Ortiz Primary Care Provider [phone] Reason for Referral * Diagnostic/Screening (Routine) Specialty Diagnoses / Procedures Referred By Connor t Referred To Contact Radiology Tete Mills MD [address] [place] [address] Referral ID Status Reason Start Date Expiration Date Visits Re quested Visits Authorized Encounter Details Date Type Department Care Team (Late st Contact Info) Description 10/20/2025 Imaging Exam [facility] EXTERNAL IM[facility] [address] [place] [phone] Tete Mills MD [address] [place] [address] Social History Tobacco Use Types Packs/Day Years [...] as of this encounter Results * CT Chest w Contrast (10/20/2025 12:46 PM PST) Narrative [facility] - 10/20/2025 12:46 PM PST External films for comparison only - No results will be in the chart. us Historical Provider MD [facility] ORDERABLES Final R esult [facility] documented in this encounter Visit Diagnoses Not on filedocumented in this encounter Care Teams Card Puncher Relationship Specialty Start Date End Date Federica Ortiz ARNP [address] [place] [phone] PCP - General Family Nurse Practitioner 08/30/16 documented as of this encounter
--- OUTSIDE RECORDS SUMMARY | 2025-10-23 04:41 | EXTERNAL MEDICAL SUMMARY RPT | Encounter Summary ---
Author Organization [facility] Address [address] [place] [address] Care Team Providers Care Mailroom Messenger Name Role Phone AngelFederica CLAUDIA Primary Care Provider [phone] Encounter Details Date Type Department Care Team (Late st Contact Info) Description 10/20/2025 1:05 PM PST Imaging Exam [facility] EXTERNAL IMAGING [address] [place] [phone] Provider, Tete, [address] [place] [address]. [place] [address] Arrived Social History Tobacco Use Types Packs/Day [...] Name Priority Date/Time Associated Diagnosis Comments CT CERVICAL SPINE WO CONTRAST Routine 10/20/2025 12:47 PM PST documented in this encounter Results * CT Cervical Spine wo Contrast (10/20/2025 12:47 PM PST) Narrative [facility] - 10/20/2025 12:47 PM PST External films for comparison only - No results will be in the chart. Historical Provider MD [facility] ORDERABLES Final R esult [facility] documented in this encounter Visit Diagnoses Not on filedocumented in this encounter Care Teams Mailroom Messenger Relationship Specialty Start Date End Date Federica Ortiz ARNP [address] [place] [address] PCP - General Family Nurse Practitioner 08/30/16 documented as of this encounter
--- OUTSIDE RECORDS SUMMARY | 2025-10-23 04:42 | EXTERNAL MEDICAL SUMMARY RPT | Clinical Summary ---
Author Organization [facility] Address [address] [place] [address] Care Team Providers Care Fire Ranger Name Role Phone Federica Ortiz Primary Care Provider [phone] Allergies Active Allergy Reactions Criticality Noted Date Comments Atenolol Other (See Comments) Medium 08/30/2016 Fluid in lungs Doxycycline Hives Medium 08/30/2016 Hydrochlorothiazide 04/02/2013 Lisinopril 04/30/2013 Medications amlodipine (NORVASC) 10 MG tablet Take 10 mg by mouth Daily. Active spironolactone (ALDACTONE) 50 mg tablet Take 75 mg by mouth Daily. Active TRAMADOL HCL PO Take 100 mg by mouth 2 times daily. Active albuterol 2.5 mg/3 mL nebulizer solution Take 2.5 mg by nebulization every 4 hours as needed for Wheezing. Active atorvaSTATin (LIPITOR) 80 MG tablet Take 80 mg by mouth nightly. Active warfarin (COUMADIN) 5 mg tablet Take 1 tablet by mouth every evening. Dose to be adjusted by Anticoagulation Clinic to target INR 2-3 30 tablet 0 09/09/20 16 Active Fluticasone-Sa lmeterol (ADVAIR HFA IN) Inhale 1-2 puffs into the lungs 2 times daily. 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 Encounter for therapeutic drug monitoring 2015 Aspiration pneumonia 09/07/2016 Empyema, left 09/04/2016 Acute respiratory failure with hypoxia 6 Bilateral pulmonary embolism 08/30/2016 Hypertension 08/30/2016 Pleural effusion, left 08/30/2016 COPD (chronic obstructive pulmonary disease) Chronic pain 08/30/2016 Encounters Date Type Department Care Team Description 10/20/2025 1:05 PM PST Imaging Exam [facility] EXTER[facility] IM[facility] [address] [place] [address] Tete Mills MD Arrived 10/20/2025 1:00 PM PST Imaging Exam [facility] EXTERNAL IMAG[facility] [address] [place] [address] Tete Mills MD Arrived 10/20/2025 12:55 PM PST Imaging Exam [facility] EX[facility] IM[facility] [address] [place] [address] Tete Mills MD Arrived 10/20/2025 12:50 PM PST Imaging Exam [facility] EXTERNAL IMAGING [address] [place] [address] Tete Mills MD Arrived 10/20/[address] [facility] EX[facility] [address] [place] [address] Tete Mills MD 10/20/[address] [facility] EX[facility] [address] [place] [address] Tete Mills MD 10/20/[address] [facility] EX[facility] [address] [place] [address] Tete Mills MD 10/20/[address] [facility] EX[facility] [address] [place] [address] Tete Mills MD from Last 3 Months Social History Tobacco [...] Sign Reading Time Taken Comments Blood Pressure 149/86 09/30/2016 10:49 AM PST Pulse 73 09/30/2016 10:49 AM PST Temperature 36.6 C (97.9 F) 09/30/2016 10:49 AM PST Respiratory Rate 16 09/30/2016 10:49 AM PST Oxygen Saturation 92% 09/17/2016 3:19 PM PDT Inhaled Oxygen Concentration - - Weight 94.8 kg (209 lb) 09/30/2016 10:49 AM PST Height 157.5 cm (5' 2") 09/30/2016 10:49 AM PST Body Mass Index 38.23 09/30/2016 10:49 AM PST Plan of Treatment Health Maintenance Due Date Last Done Comments CT Colonography 1975 ColoGuard 1975 Colonoscopy 1975 Colorectal Combination Topic 1975 FIT 1975 Sigmoidoscopy 1975 Breast Cancer Screening 2012 COVID-19 Vaccine ( season) 2025 04/03/2024, 10/18/2023, 04/05/2023, Additional history exists Vaccine: Influenza (#1) 2025 09/04/20 24, 09/27/2023, 09/05/2022, Additional history exists Vaccine: Dtap/Tdap/Td (3 - Td or Tdap) 06/26/2028 06/26/2018, 06/30/2014 Vaccine: Zoster Completed 06/30/2018, 02/16, 08/11/2017 Vaccine: RSV Adult Completed 11/01/2023 Vaccine: Pneumococcal 50+ Completed 11/15/2023, Vaccine: Hepatitis B Adult Aged Out N o longer eligible based on patient's age to complete this topic Vaccine: Hib Aged Out No longer eligi ble based on patient's age to complete this topic Vaccine: Meningococcal B Aged Out No longer eligible based on patient's age to complete this topic Procedures Procedure Name Priority Date/Time Associated Diagnosis Comments CT CERVICAL SPINE WO CONTRAST Routine 10/20/2025 12:[address] CHEST W CONTRAST Routine 10/20/2025 1 2:[address] ABDOMEN PELVIS W IV CONTRAST Routine 10/20/2025 12:[address] THORACIC SPINE WO CONTRAST Routine 10/20/2025 12:45 PM PST from Last 3 Months Results * CT Cervical Spine wo Contrast (10/20/2025 12:47 PM PST) Narrative [facility] - 10/20/2025 12:47 PM PST External films for comparison only - No results will be in the chart. Historical Provider MD [facility] ORDERABLES Final R esult Performing Organization Address [facility] de Phone Number [facility] * CT Chest w Contrast (10/20/2025 12:46 PM PST) Narrative [facility] - 10/20/2025 12:46 PM PST External films for comparison only - No results will be in the chart. Historical Provider MD [facility] CT ORDERABLES Final R esult Performing Organization Address [facility] Co de Phone Number [facility] * CT Abdomen Pelvis w IV Contrast (10/20/2025 12:45 PM PST) Narrative [facility] - 10/20/2025 12:45 PM PST External films for comparison only - No results will be in the chart. Historical Provider MD [facility] CT ORDERABLES Final R esult Performing Organization Address [facility] Co de Phone Number [facility] * CT Thoracic Spine wo Contrast (10/20/2025 12:45 PM PST) Narrative [facility] - 10/20/2025 12:45 PM PST External films for comparison only - No results will be in the chart. Historical Provider MD [facility] CT ORDERABLES Final R esult Performing Organization Address [facility] Co de Phone Number [facility] from Last 3 Months Insurance [facility] [employer] [facility] Advance Directives * Full Code (Latest Code Status on File) Date Activated Date Inactivated Comments 09/02/2016 12:25 PM 09/09/2016 4:56 PM * Full Code Date Activated Date Inactivated Comments 08/30/2016 5:59 PM 09/02/2016 11:14 AM * Full Code by default - TBD Date Activated Date Inactivated Comments 08/30/2016 3:33 PM 08/30/2016 5:59 PM Care Teams Fire Ranger Relationship Specialty Start Date End Date Federica Ortiz ARNP [address] [place] [phone] PCP - General Family Nurse Practitioner 08/30/16
== END 2025-10-21 15:35 | disposition short-term general hospital (02) ==
LOC: ED 08:23 → MS2 08:23
PROVIDERS: ADMIT Nurse Practitioner Acute Care; ATTEND Nurse Practitioner Acute Care
DX: Z95.5 Presence of coronary angioplasty implant and graft; J45.909 Unspecified asthma, uncomplicated; M54.6 Pain in thoracic spine; J44.1 Chronic obstructive pulmonary disease with (acute) exacerbation; Z79.899 Other long term (current) drug therapy; Z79.02 Long term (current) use of antithrombotics/antiplatelets; I11.0 Hypertensive heart disease with heart failure; I50.32 Chronic diastolic (congestive) heart failure; D64.9 Anemia, unspecified; Z79.01 Long term (current) use of anticoagulants; M25.512 Pain in left shoulder; R10.12 Left upper quadrant pain; Z86.711 Personal history of pulmonary embolism; I25.2 Old myocardial infarction; I25.84 Coronary atherosclerosis due to calcified coronary lesion; M25.511 Pain in right shoulder; M54.2 Cervicalgia; I25.110 Atherosclerotic heart disease of native coronary artery with unstable angina pectoris; K92.1 Melena; Z87.891 Personal history of nicotine dependence